=== PATIENT | female | born 1935 | race Caucasian/White ===

== ENCOUNTER 2019-04-25 19:21 | Inpatient (IN) | payer MEDICARE, OTHER ==
[2019-04-26 09:54] VITALS: BP 140/76
[2019-04-26] MEDS ORDERED: TROLAMINE SALICYLATE TP PRN (17:56)
[2019-04-26] MEDS ORDERED: ALOE VERA TP PRN (17:56)
[2019-04-26] MEDS: Albuterol Nebulizer 2.5mg/3mL HHN SCH (19:55)
--- NOTE | 2019-04-26 20:19 | Psychiatric Evaluation ---
DATE OF SERVICE: 04/26/2019 IDENTIFYING DATA: The patient is an 84-year-old woman, resident of [facility]. Information obtained by directly interviewing the patient as well as reviewing the admission papers. JUSTIFICATION OF HOSPITALIZATION: The patient is admitted here on a voluntary basis in view of her acute agitation and aggressive behavior. CHIEF COMPLAINT: "I can't be in here. I need to be out at my own place." HISTORY OF PRESENT ILLNESS: This is the first psychiatric hospitalization to [facility] for this patient who is reported to have been having problem with. The patient has been having repeated falls and the patient could not be taken care of on an outpatient basis and the patient was referred to the [facility]. The patient reported to have been getting easily agitated, striking out and yelling over there and hence the patient has been referred over here for stabilization. The patient during the evaluation is noted to be very irritable, angry and screaming, stating that she cannot be in here. She has everything at home, she needs to be back at [place]. PAST PSYCHIATRIC HISTORY: The patient denies any prior psychiatric hospitalizations, but the patient is reported to be treated for depression. MEDICAL HISTORY: Physical examination is requested by Dr. Ch and is noted to be significant for COPD, anxiety, renal failure and history of lung cancer. The patient claims to be on a rehab and she states that she has all the support at home. SOCIAL HISTORY: The patient was living by herself prior to being in the [facility]. SUBSTANCE ABUSE HISTORY: None. PHYSICAL OR SEXUAL ABUSE HISTORY: None. LEGAL PROBLEMS: None at this time. MENTAL STATUS EXAMINATION: The patient is an 84-year-old thin built, superficially cooperative. Eye contact is fair. Mood is noted to be depressed. Affect is constricted. The patient is going to be getting easily agitated. The patient is wheelchair bound. The patient denies any command hallucinations. No delusions are noted at this time. Insight and judgment are noted to be still impaired. Impulse control is noted to be poor. Coping skills are noted to be poor. The patient has been having difficult time to cope with the stress. The patient is alert and aware that she is in the hospital, but attention span and concentration are noted to be very poor at this time. The patient's short term memory is noted to be poor. Long-term memory seems to be fair. The patient is reported to have been nonredirectable and yelling and striking out. The patient's behavior has been a danger to others at the facility and hence the patient has been referred over here for stabilization. DIAGNOSES: AXIS I: Major depressive disorder, recurrent and moderate. AXIS IB: Dementia and behavioral change, secondary trait. AXIS II: None. AXIS III: As per Dr. Ch. IMMEDIATE TREATMENT PLAN: The patient is going to be observed on the inpatient unit, provided with supportive psychotherapy and once stabilized, she is going to be discharged for further care on an outpatient basis. ESTIMATED LENGTH OF STAY: 5-7 days. DISCHARGE CRITERIA: When the patient no longer is threat to self or others and be able to cope up with the stress. [facility]# [id number]
[2019-04-27] MEDS: Albuterol Nebulizer 2.5mg/3mL HHN SCH ×4 (06:20→20:46)
[2019-04-27] MEDS: Potassium Chloride 20 mEq ER Tab PO SCH (09:44)
--- NOTE | 2019-04-27 13:17 | History and Physical ---
History of Present Illness - HPI Chief Complaint: HISTORY AND PHYSICAL was dictated yesterday 04/26/2019 1150am transfer from [place], patient is medically cleared HPI: This is a 84-year old female who is transferred from [facility] who is medically cleared who is also a resident of [facility]. Patient has a past medical history of lung ca with left upper chest port, hyperlipidemia, alzheimers, pvd, RA, COPD, depression, and acute kidney failure. Vital Signs: Last Vital Signs Temp 97.8 F 04/27/19 07:08 Pulse 54 04/27/19 07:08 Resp 18 04/27/19 07:08 BP 127/66 04/27/19 07:08 Pulse Ox 94 04/27/19 07:08 Past Medical History Other History: see HPI Family Medical History - Family Member Mother History Unknown: Yes Social History Smoke: Quit Alcohol: None Drugs: None Lives: Assisted - Medications Home Medications: Home Medication Medication Instructions Recorded Type Albuterol Nebulizer 2.5mg/3mL 2.5 mg IH Q4HR 04/26/19 History [Albuterol Neb UD*] Albuterol Nebulizer 2.5mg/3mL 2.5 mg IH QID 04/26/19 History [Albuterol Neb UD*] Alprazolam [Xanax*] 1 mg PO DAILY PRN 04/26/19 History Alprazolam [Xanax*] 1 mg PO Q12HR PRN 04/26/19 History Baclofen [Lioresal*] 10 mg PO Q8HR PRN 04/26/19 History Bisacodyl [Dulcolax 10 Mg Supp] 10 mg RC DAILY PRN 04/26/19 History Budesonide/Formoterol Fumarate 2 puff IH BID 04/26/19 History [Symbicort] Cetirizine HCl/Pseudoephedrine 5 - 120 mg PO Q12HR PRN 04/26/19 History [Zyrtec-D Tablet] Divalproex [Depakomeet DR] 250 mg PO Q8HR 04/26/19 History Docusate Sodium [Colace] 100 mg PO BID PRN 04/26/19 History Docusate Sodium [Colace] 100 mg PO BID PRN 04/26/19 History Furosemide [Lasix] 40 mg PO Q24HR PRN 04/26/19 History Gabapentin [Neurontin] 300 mg PO BID 04/26/19 History Ibuprofen [Motrin*] 800 mg PO PRN PRN MDD 3,000 04/26/19 History Leflunomide 10 mg PO BID 04/26/19 History Melatonin 3 mg PO HS PRN 04/26/19 History Ondansetron [Ondansetron Odt] 8 mg PO Q8HR PRN 04/26/19 History Oxycodone HCl 10 mg PO Q8HR PRN 04/26/19 History Potassium Chloride 20 meq PO DAILY 04/26/19 History Prednisone 10 mg PO DAILY 04/26/19 History Promethazine [Phenergan] 6.25 mg PO Q6HR PRN 04/26/19 History Ropinirole HCl [Requip] 0.25 mg PO TID 04/26/19 History Trolamine Salicylate/Aloe Vera 35.4 gm TP PRN PRN 04/26/19 History [Aspercreme 10% Cream] - Allergies Allergies/Adverse Reactions: Allergies Allergy/AdvReac Type Severity Reaction Status Date / Time morphine Allergy Verified 04/26/19 09:54 Review of Systems - Review of Systems Constitutional: Report: No Significant Eyes: Report: No Significant ENT: Report: No Significant Respiratory: Report: No Significant Cardiovascular: Report: No Significant Neurological: Report: No Significant Physical Exam - Physical Exam HEENT: Report: Ears Nose Throat within normal limits Neck: Report: Within normal limits Cardiovascular Systems: Report: +s1/s2 noted, Regular, Rate and Rhythm Abdomen: Report: Non-tender to palpation Back: Report: Other (rashes) Extremities: Report: Non-tender to palpation. Skin: Report: Warm, Dry, Skin Rash noted, Other (LUE port) Neuro/Psych: Report: Mood affect is within normal limits, A+Ox3 - Assessment Assessment: Acute renal failure Lung CA with left upper chest port Hyperlipidemia PVD RA - Plan Plan: continue home medications fall precautions respiratory tx as needed supplemental O2 will continue to follow patient
--- NOTE | 2019-04-27 18:12 | Progress Notes ---
DATE: 04/27/2019 PSYCHIATRIC PROGRESS NOTE SUBJECTIVE: Staff was spoken to. The patient is interviewed. Mood is noted to be irritable. Affect is constricted. The patient wants to call the fire station for the fire truck to come out and then pick her up to take her to home. The patient has no insight into her illness. The patient is getting easily agitated. Coping skills at this time are noted to be very poor. Sleep and appetite also noted to be very poor. ASSESSMENT: The patient is still depressed. PLAN: To continue ____, encouraged the patient to verbalize the concerns rather than to act out. JOB# [id number]
[2019-04-27] MEDS: Budesonide 0.5 Mg/2 mL Ud HHN SCH (20:46)
[2019-04-28] MEDS: Budesonide 0.5 Mg/2 mL Ud HHN SCH ×2 (06:36→19:36)
[2019-04-28] MEDS: Albuterol Nebulizer 2.5mg/3mL HHN SCH ×4 (06:36→19:35)
[2019-04-28] MEDS: Potassium Chloride 20 mEq ER Tab PO SCH (08:35)
[2019-04-28] MEDS: Triple Antibiotic 0.94 gm Pkt TP SCH (08:35)
--- NOTE | 2019-04-28 13:06 | Internal Medicine Prog Note ---
Internal Medicine Subjective - Subjective Patient seen and examined:: with staff, chart reviewed Patient is:: awake, verbal, interactive, in wheelchair Patient Complaints of:: cough Per staff patient has:: no adverse event, no episodes of fall, poor appetite Internal Medicine Objective - Physical Exam Vitals and I&O: Vital Signs Temp 97.6 F 04/28/19 06:37 Pulse 87 04/28/19 06:37 Resp 18 04/28/19 06:37 BP 132/65 04/28/19 06:37 Pulse Ox 96 04/28/19 06:37 Intake & Output 04/27/19 04/28/19 04/28/19 18:59 06:59 18:59 Intake Total 800 120 Balance 800 120 Intake: Oral 800 120 Other: # Voids 3 3 # Bowel Movements 2 Active Medications: Current Medications Acetaminophen (Tylenol) 650 mg PO Q4HR PRN PRN Reason: Temperature Above 100 Stop: 06/25/19 15:19 Albuterol Sulfate (Albuterol 2.5mg/3ml Neb Ud) 2.5 mg HHN QIDRT [facility] Stop: 06/25/19 18:59 Last Admin: 04/28/19 11:39 Dose: Not Given Alprazolam (Xanax) 0.25 mg PO Q6HR PRN; Protocol PRN Reason: Anxiety Stop: 06/25/19 16:56 Last Admin: 04/27/19 00:00 Dose: 0.25 mg Budesonide (Pulmicort) 0.5 mg HHN BIDRT [facility] Stop: 06/26/19 18:59 Last Admin: 04/28/19 06:36 Dose: Not Given Divalproex Sodium (Depakote Dr) 250 mg PO BID [facility]; Protocol Stop: 06/25/19 16:59 Last Admin: 04/28/19 08:35 Dose: 250 mg Docusate Sodium (Colace) 100 mg PO BID PRN PRN Reason: Constipation Stop: 06/25/19 17:55 Furosemide (Lasix) 40 mg PO Q24HR PRN PRN Reason: EDEMA Stop: 06/25/19 18:44 Gabapentin (Neurontin) 300 mg PO BID [facility] Stop: 06/26/19 08:59 Last Admin: 04/28/19 08:35 Dose: 300 mg Ibuprofen (Motrin) 800 mg PO Q8HR PRN PRN Reason: Pain (Mild 1-3) Stop: 06/25/19 17:55 Last Admin: 04/28/19 11:39 Dose: 800 mg Neomycin/Polymyxin/Bacitracin (Triple Antibiotic Pkt) 1 pkt TP DAILY [facility] Stop: 06/27/19 08:59 Last Admin: 04/28/19 08:35 Dose: 1 pkt Potassium Chloride (Klor-Con) 20 meq PO DAILY [facility] Stop: 06/26/19 08:59 Last Admin: 04/28/19 08:35 Dose: 20 meq Prednisone (Deltasone) 10 mg PO DAILY [facility] Stop: 06/26/19 08:59 Last Admin: 04/28/19 08:35 Dose: 10 mg Promethazine HCl (Phenergan) 6.25 mg PO Q6HR PRN PRN Reason: Cough Stop: 06/25/19 17:55 Ropinirole HCl (Requip) 0.25 mg PO TID [facility] Stop: 06/25/19 20:59 Last Admin: 04/28/19 08:36 Dose: Not Given Zolpidem Tartrate (Ambien) 5 mg PO HSMR1 PRN PRN Reason: Insomnia Stop: 06/25/19 15:19 General: alert HEENT: NC/AT, PERRLA, EOMI Neck: Supple, No JVD Lungs: CTAB Cardiovascular: RRR, Normal S1, Normal S2, with murmur Abdomen: soft, thin, positive bowel sound Extremities: clear, contracture Neurological: no change Internal Medicine Assmt/Plan - Assessment Assessment: - Assessment Assessment: Acute renal failure Lung CA with left upper chest port Hyperlipidemia PVD RA - Plan Plan: - - Plan Plan: continue home medications fall precautions respiratory tx as needed supplemental O2 will continue to follow patient cpm
--- NOTE | 2019-04-28 21:00 | Consultation ---
DATE OF CONSULTATION: 04/28/2019 REFERRING PHYSICIANS: Kiet Gonzales MD and Isabell Maldonado MD TYPE OF CONSULTATION: Psychology. HISTORY OF PRESENT ILLNESS: The patient is an 84-year-old female. The patient is a resident of [facility]. The following is by record review and by the patient's self-report. The patient is being admitted due to acute agitation and aggressive behavior. Upon interview, the patient appears to have poor insight into her recent behavior and her illness. The patient stated that she should not be here and she was supposed to be discharged on Sunday. The patient assumes that she is discharging and returning to her own home. The patient has been in a alf facility in [place] previously. The staff at the patient's facility report that the patient has had repeated falls and was unable to take care of herself on an outpatient basis. The patient was referred to [facility]. According to review of the record, the patient has a recent history of striking out and yelling episodes. The patient seems to be calmer during this clinical interview. The patient continued to singularly focus and perseverate on being discharged. PAST MEDICAL HISTORY: Please see history and physical by Dr. Ch. PAST PSYCHIATRIC HISTORY: The patient has a history of depression. According to record review, the patient states she has not been treated by a psychiatrist or psychologist in the past and there have been no previous psychiatric hospitalizations. SUBSTANCE ABUSE HISTORY: The patient denied any history of alcohol, tobacco or illicit drug use. BRIEF PSYCHOSOCIAL HISTORY: The patient states that she was living by herself at home prior to being transferred to [facility]. The patient was unable to state how long she has been there. The patient states that she was raised [employer] and that she has been for many years. The patient states that her children are involved in her care. The patient stated just the one daughter, Jane that is involved in her care and her granddaughter named, Soni. The patient did not answer questions about occupational or educational history. She denied any current legal problems. She denies any history of physical or sexual abuse. The patient is requesting to return to her own home upon discharge from here. This was deferred to the attending psychiatrist and the showcase maker. MENTAL STATUS EXAMINATION: The patient appears to be her stated age. The patient's attitude is superficially cooperative, but easily frustrated. Eye contact is fair. Speech is spontaneous, but somewhat pressured. Mood is anxious and depressed. Affect is mood congruent and animated and reactive. Thought process shows to be confused at times, but is cognitively redirectable. The patient denied any hallucinations or delusions. The patient is perseverating on discharge and returning home. The patient's behavior has been demanding towards staff with respect to discharge and seeing the admitting physician. The patient has been compliant with her medications. She denied any suicidal ideation, plan or intention at the time of this clinical interview. Impulse control is limited. Concentration is poor with distractibility, but the patient does respond to cognitive refocusing. The patient was able to repeat 3 items given to her the first time. She was unable to recall any of the items after several minutes. Short term memory is impaired. Long-term memory needs further evaluation, but seems to be grossly intact. Sensorium is alert and oriented to person and place. The patient has a history of striking out behaviors according to record review. The patient did not participate in the interpretation of proverbs. Insight is poor. Judgment is compromised. DIAGNOSTIC IMPRESSION AXIS I: 1. Major depressive disorder, recurrent, moderate. 2. Dementia with behavioral disturbance. AXIS II: Deferred. AXIS III: Per Dr. Ch. TREATMENT PLAN: The patient has been seen by Dr. Maldonado for psychiatric evaluation and for the management of the patient's psychotropic medications. We will provide supportive psychotherapy to include reality orientation, differentiation and integration. We will provide coping strategies for phase of life issues. We will provide insight oriented therapy with reflective listening to assist the patient in reducing her depression and adjusting to her current circumstances. The patient has been compliant with medication. Staff however, states that the patient has had an episode of yelling and screaming with difficulty to redirect behaviorally. We will provide de-escalation as well as boundary definitions and awareness for the patient to more appropriately interact with staff and to increase her frustration tolerance. The patient is confused about her discharge. This tech writer requested social contact worker to discuss discharge and her request to see the attending psychiatrist has been passed on to the nursing staff. The patient does understand that discharge is by Dr. Maldonado. We will continue the present treatment if the patient remains on the unit and is willing to participate and to benefit from psychology services. Thank you, Dr. Gonzales and Dr. Maldonado for this consult and the opportunity to participate with you in this patient's care. JOB# [id number] [email or web address]
--- NOTE | 2019-04-28 21:06 | Progress Notes ---
DATE: 04/28/2019 PSYCHIATRIC PROGRESS NOTE SUBJECTIVE: Staff was spoken to. The patient is interviewed. Mood is noted to be irritable. Affect is constricted. The patient is still perseverating that she needs to be discharged and she can take care of herself and she has lot of help at home. However, the family is calling and stating that she is not ready to come home, she needs to go for placement. The patient has no insight into her illness. ASSESSMENT: The patient is still impulsive. PLAN: To continue the patient with the supportive therapy, encouraged the patient to verbalize the concerns rather than to act out. JOB# [id number]
[2019-04-29] MEDS: Budesonide 0.5 Mg/2 mL Ud HHN SCH ×2 (06:06→20:23)
[2019-04-29] MEDS: Albuterol Nebulizer 2.5mg/3mL HHN SCH ×4 (06:06→20:23)
[2019-04-29] MEDS: Triple Antibiotic 0.94 gm Pkt TP SCH (08:46)
[2019-04-29] MEDS: Potassium Chloride 20 mEq ER Tab PO SCH (08:46)
--- NOTE | 2019-04-29 12:11 | Internal Medicine Prog Note ---
Internal Medicine Subjective - Subjective Patient seen and examined:: with staff, chart reviewed Patient is:: awake, verbal, interactive, in wheelchair Patient Complaints of:: cough Per staff patient has:: no adverse event, no episodes of fall, poor appetite Internal Medicine Objective - Physical Exam Vitals and I&O: Vital Signs Temp 97.2 F 04/29/19 06:22 Pulse 97 04/29/19 06:22 Resp 20 04/29/19 06:22 BP 139/71 04/29/19 06:22 Pulse Ox 92 04/29/19 06:22 Intake & Output 04/28/19 04/29/19 04/29/19 18:59 06:59 18:59 Intake Total 1100 240 Balance 1100 240 Intake: Oral 1100 240 Other: # Voids 2 2 # Bowel Movements 0 Active Medications: Current Medications Acetaminophen (Tylenol) 650 mg PO Q4HR PRN PRN Reason: Temperature Above 100 Stop: 06/25/19 15:19 Albuterol Sulfate (Albuterol 2.5mg/3ml Neb Ud) 2.5 mg HHN QIDRT [facility] Stop: 06/25/19 18:59 Last Admin: 04/29/19 06:06 Dose: 2.5 mg Alprazolam (Xanax) 0.25 mg PO Q6HR PRN; Protocol PRN Reason: Anxiety Stop: 06/25/19 16:56 Last Admin: 04/27/19 00:00 Dose: 0.25 mg Budesonide (Pulmicort) 0.5 mg HHN BIDRT [facility] Stop: 06/26/19 18:59 Last Admin: 04/29/19 06:06 Dose: 0.5 mg Divalproex Sodium (Depakote Dr) 250 mg PO BID [facility]; Protocol Stop: 06/25/19 16:59 Last Admin: 04/29/19 08:46 Dose: 250 mg Docusate Sodium (Colace) 100 mg PO BID PRN PRN Reason: Constipation Stop: 06/25/19 17:55 Furosemide (Lasix) 40 mg PO Q24HR PRN PRN Reason: EDEMA Stop: 06/25/19 18:44 Gabapentin (Neurontin) 300 mg PO BID [facility] Stop: 06/26/19 08:59 Last Admin: 04/29/19 08:46 Dose: 300 mg Ibuprofen (Motrin) 800 mg PO Q8HR PRN PRN Reason: Pain (Mild 1-3) Stop: 06/25/19 17:55 Last Admin: 04/28/19 11:39 Dose: 800 mg Neomycin/Polymyxin/Bacitracin (Triple Antibiotic Pkt) 1 pkt TP DAILY [facility] Stop: 06/27/19 08:59 Last Admin: 04/29/19 08:46 Dose: 1 pkt Potassium Chloride (Klor-Con) 20 meq PO DAILY [facility] Stop: 06/26/19 08:59 Last Admin: 04/29/19 08:46 Dose: 20 meq Prednisone (Deltasone) 10 mg PO DAILY [facility] Stop: 06/26/19 08:59 Last Admin: 04/29/19 08:46 Dose: 10 mg Promethazine HCl (Phenergan) 6.25 mg PO Q6HR PRN PRN Reason: Cough Stop: 06/25/19 17:55 Last Admin: 04/29/19 08:51 Dose: 6.25 mg Ropinirole HCl (Requip) 0.25 mg PO TID [facility] Stop: 06/25/19 20:59 Last Admin: 04/29/19 08:51 Dose: 0.25 mg Zolpidem Tartrate (Ambien) 5 mg PO HSMR1 PRN PRN Reason: Insomnia Stop: 06/25/19 15:19 General: alert HEENT: NC/AT, PERRLA, EOMI Neck: Supple, No JVD Lungs: CTAB Cardiovascular: RRR, Normal S1, Normal S2, with murmur Abdomen: soft, thin, positive bowel sound Extremities: clear, contracture Neurological: no change Internal Medicine Assmt/Plan - Assessment Assessment: - Assessment Assessment: Acute renal insufficiency Lung CA with left upper chest port Hyperlipidemia PVD RA - Plan Plan: - - Plan Plan: continue home medications fall precautions respiratory tx as needed supplemental O2 will continue to follow patient cpm
--- NOTE | 2019-04-30 02:59 | Progress Notes ---
DATE: 04/29/2019 PSYCHIATRIC PROGRESS NOTE SUBJECTIVE: Staff was spoken to. The patient is interviewed. Mood is noted to be irritable. Affect is constricted. Insight and judgment are noted to be still impaired. The patient is very argumentative, stating that she needs to go to her home and she has all the help that she needs. Coping skills at this time are noted to be very poor. No side effects to the medications are noted. The patient is not able to care for self; however, the patient keeps on arguing that she is able to care for herself and she needs to be discharged back to her home. The patient has been mentioned that she is not on the hospice and the patient is stating that she could not really ____ why she was taken off of the hospice. ASSESSMENT: The patient is depressed at this time. PLAN: To continue the patient with the supportive therapy. I encouraged the patient to verbalize the concerns rather than to act out. In view of the patient's depression, the patient is going to be started on the Lexapro 5 mg on a daily basis and followed up with the supportive therapy. JOB# [id number]
[2019-04-30] MEDS: Budesonide 0.5 Mg/2 mL Ud HHN SCH ×2 (08:00→20:25)
[2019-04-30] MEDS: Potassium Chloride 20 mEq ER Tab PO SCH (09:29)
[2019-04-30] MEDS: Triple Antibiotic 0.94 gm Pkt TP SCH (09:31)
[2019-04-30] MEDS: Venelex 60gm Tube TP SCH (09:56)
[2019-04-30] MEDS: Albuterol Nebulizer 2.5mg/3mL HHN SCH ×4 (10:55→20:25)
--- NOTE | 2019-04-30 13:33 | Internal Medicine Prog Note ---
Internal Medicine Subjective - Subjective Patient seen and examined:: with staff, chart reviewed Patient is:: awake, verbal, interactive, in wheelchair Patient Complaints of:: cough Per staff patient has:: no adverse event, no episodes of fall, poor appetite Internal Medicine Objective - Physical Exam Vitals and I&O: Vital Signs Temp 96.9 F 04/30/19 08:00 Pulse 106 04/30/19 08:00 Resp 20 04/30/19 08:00 BP 131/66 04/30/19 08:00 Pulse Ox 98 04/30/19 08:00 Intake & Output 04/29/19 04/30/19 04/30/19 18:59 06:59 18:59 Intake Total 1200 120 Balance 1200 120 Intake: Oral 1200 120 Other: # Voids 3 3 # Bowel Movements 1 0 Active Medications: Current Medications Acetaminophen (Tylenol) 650 mg PO Q4HR PRN PRN Reason: Temperature Above 100 Stop: 06/25/19 15:19 Albuterol Sulfate (Albuterol 2.5mg/3ml Neb Ud) 2.5 mg HHN QIDRT [facility] Stop: 06/25/19 18:59 Last Admin: 04/30/19 10:55 Dose: 2.5 mg Alprazolam (Xanax) 0.25 mg PO Q6HR PRN; Protocol PRN Reason: Anxiety Stop: 06/25/19 16:56 Last Admin: 04/27/19 00:00 Dose: 0.25 mg Budesonide (Pulmicort) 0.5 mg HHN BIDRT [facility] Stop: 06/26/19 18:59 Last Admin: 04/30/19 08:00 Dose: 0.5 mg [place] Oil/Iranian Balsam/Trypsin (Venelex) 1 appl TP DAILY [facility] Stop: 06/29/19 08:59 Last Admin: 04/30/19 09:56 Dose: 1 appl Divalproex Sodium (Depakote Dr) 250 mg PO BID [facility]; Protocol Stop: 06/25/19 16:59 Last Admin: 04/30/19 09:30 Dose: 250 mg Docusate Sodium (Colace) 100 mg PO BID PRN PRN Reason: Constipation Stop: 06/25/19 17:55 Escitalopram Oxalate (Lexapro) 5 mg PO DAILY [facility]; Protocol Stop: 04/26/20 08:59 Furosemide (Lasix) 40 mg PO Q24HR PRN PRN Reason: EDEMA Stop: 06/25/19 18:44 Gabapentin (Neurontin) 300 mg PO BID [facility] Stop: 06/26/19 08:59 Last Admin: 04/30/19 09:30 Dose: 300 mg Ibuprofen (Motrin) 800 mg PO Q8HR PRN PRN Reason: Pain (Mild 1-3) Stop: 06/25/19 17:55 Last Admin: 04/28/19 11:39 Dose: 800 mg Neomycin/Polymyxin/Bacitracin (Triple Antibiotic Pkt) 1 pkt TP DAILY [facility] Stop: 06/27/19 08:59 Last Admin: 04/30/19 09:31 Dose: 1 pkt Potassium Chloride (Klor-Con) 20 meq PO DAILY [facility] Stop: 06/26/19 08:59 Last Admin: 04/30/19 09:29 Dose: 20 meq Prednisone (Deltasone) 10 mg PO DAILY [facility] Stop: 06/26/19 08:59 Last Admin: 04/30/19 09:30 Dose: 10 mg Promethazine HCl (Phenergan) 6.25 mg PO Q6HR PRN PRN Reason: Cough Stop: 06/25/19 17:55 Last Admin: 04/29/19 08:51 Dose: 6.25 mg Ropinirole HCl (Requip) 0.25 mg PO TID [facility] Stop: 06/25/19 20:59 Last Admin: 04/30/19 09:44 Dose: 0.25 mg Zolpidem Tartrate (Ambien) 5 mg PO HSMR1 PRN PRN Reason: Insomnia Stop: 06/25/19 15:19 Last Admin: 04/29/19 22:20 Dose: 5 mg General: alert HEENT: NC/AT, PERRLA, EOMI Neck: Supple, No JVD Lungs: CTAB Cardiovascular: RRR, Normal S1, Normal S2, with murmur Abdomen: soft, thin, positive bowel sound Extremities: clear, contracture Neurological: no change Internal Medicine Assmt/Plan - Assessment Assessment: - Assessment Assessment: Acute renal insufficiency Lung CA with left upper chest port Hyperlipidemia PVD RA - Plan Plan: - - Plan Plan: continue home medications fall precautions respiratory tx as needed supplemental O2 will continue to follow patient cpm Nutritional Asmnt/Malnutr-PDOC - Dietary Evaluation Malnutrition Findings (Please click <Entered> for more info): Nutritional Asmnt/Malnutrition Start: 04/29/19 14: 16 Text: Status: Complete Freq: Protocol: Document 04/29/19 14:16 CARMEN (Rec: 04/29/19 14:19 CARMEN [email or web address]) Nutritional Asmnt/Malnutrition Patient General Information Nutritional Screening Moderate Risk Diagnosis Psychosis Pertinent Medical Hx/Surgical Hx Lung CA with LT Upper Chest Port, Hyperlipidemia, Alzheimers Disease, PVD, RA, COPD, Depression, AKF Subjective Information Pt is a 84-year-old female admitted on 04/26 d/t agitation and aggressive behavior. Pt is eating an estimated 60% of meals since admit date (x3 days) Per Meal/Nutrition Activity Record. Dietary is currently providing an estimated 1750 kcals and 100 gm Pro, per Pt PO intake this is providing an estimated 1050 kcals and 60gm Pro to meet 78 % kcal and 100% Pro needs. Will continue to monitor PO intake. Spoke with pt nurse Anahy concerning pt A1c order, nurse to follow-up. Anthropometrics HT: 53 WT: 120 LB (54.55 kg) BMI: 21.26 (normal) GI/ Skin Integrity GI: WNL, Soft BM: 04/27 x2 I/O: 1340/Not Noted Skin: Dryness, Redness, Bruises Hunter: 17 Diet Order: [facility] Estimated Energy Needs: ( Geriatric, CBW) 3120-7663 kcals (25-30 kcals/ kg) 55-65g Pro (1.0-1.2 g/kg) 7960-5385 ml (25-30 ml/kg) Current Diet Order/ Nutrition Support [facility] Pertinent Medications Albuterol (PRN), Pulmicort, Colace, Lasix, Klor-con, Deltasone Pertinent Labs 04/25: Glucose 162, BUN/Cr 27/0 .81, Ca 7.6, T Protein 5.3, Albumin 2.6, Hgb/Hct 9.7/30.2 Nutritional Hx/Data Height 1.6 m Height (Calculated Centimeters) 160.0 Current Weight (lbs) 54.431 kg Weight (Calculated Kilograms) 54.4 Weight (Calculated Grams) 51889.1 [place] Body Weight 115 LB (52.27 kg) % [place] Body Weight 104 Body Mass Index (BMI) 21.2 Weight Status Overweight GI Symptoms Last BM 04/27 x2 Skin Integrity/Comment: Skin: Dryness, Redness, Bruises Hunter: 17 Current %PO Fair (50-74%) Estimated Nutritional Goals BEE in Kcals: Using Current wt Calories/Kcals/Kg 25-30 Kcals Calculated 3575-1765 Protein: Using Current wt Protein g/k.0-1.2 Protein Calculated 55-65 Fluid: ml 5609-7064 ml (25-30 ml/kg Nutritional Problem 1. Problem Problem Impaired nutrient utilization Etiology r/t endocrine dysfunction Signs/Symptoms: aeb labs (04/25) Glucose 162. Malnutrition Related to Morbid Obesity Malnutrition related to morbid obesity No Intervention/Recommendation Comments Continue CCHO diet as tolerated. Expected Outcomes/Goals Expected Outcomes/Goals 1.PO intake to continue to meet >75% of estimated nutritional needs. 2.Monitor PO intake, wt, nutrition related lab to trend WNL, and skin integrity to trend WNL. 3.F/U as low risk in 7-10 days , 05/05-05/08.
--- NOTE | 2019-04-30 20:07 | Progress Notes ---
DATE: 04/30/2019 PSYCHOLOGY PROGRESS NOTE SUBJECTIVE: The patient is seen and is interviewed. Case is discussed with staff. The patient presents as frustrated and excitable. The patient is generally argumentative with respect to the admission here on the geropsychiatric unit and reasons for this admission. The patient does not understand why she is being hospitalized. She has no insight into her illness and does not understand or acknowledge her past behavior. The patient continued to argue to be discharged directly to her home and that her family already knows that this is supposed to happen and that the doctors are preventing this from happening. OBJECTIVE: Mood is irritable and frustrated. Affect is labile and animated. Thought process shows perseveration on discharge as well as returning home. The patient continues to be confused. The patient mentioned that she was taken off hospice and does not need to be hospitalized or see any more doctors. The patient denied any hallucinations. There may be delusional content present. This needs further evaluation. The patient continues to be somewhat demanding towards staff. ASSESSMENT: The patient's depression, confusion and anxiety persist. PLAN: We provided supportive psychotherapy and included a simple anxiety reduction skill as well as stress management to assist the patient in increasing her frustration tolerance. We provided reality testing and reality integration to assist the patient in increasing her insight into her illness and about her past behavior and reasons for hospitalization. We provided coping strategies to assist the patient in adjusting to her current circumstances. The patient requested a discussion with case management. Case management and nursing have been informed of the patient's request to discuss discharge. The attending psychiatrist is starting the patient on Lexapro 5 mg. We will continue to provide treatment and follow up in 2-3 days if the patient remains on the unit and is willing and has the capacity to participate in psychotherapeutic treatment. JOB# [id number] RACHEL
--- NOTE | 2019-05-01 01:55 | Progress Notes ---
DATE: 04/30/2019 PSYCHIATRIC PROGRESS NOTE PSYCHIATRIC PROGRESS NOTE SUBJECTIVE: Staff was spoken to. The patient is interviewed. Mood is noted to be irritable. Affect is constricted. The patient is getting easily frustrated. Insight and judgment at this time are noted to be still impaired. Impulse control is noted to be limited. The patient is still focused on living by herself, which the patient is not able to do so. The patient is stating that she has all the support outside and there is no reason for her to be in the hospital. The patient has no coping skills at this time. ASSESSMENT: The patient is still impulsive and depressed. PLAN: To continue the patient with the supportive therapy and followup. [facility]# [id number]
[2019-05-01] MEDS ORDERED: GLUCAGON HCl 1 MG KIT IM PRN (03:45)
[2019-05-01] MEDS ORDERED: INSULIN LISPRO SLIDING SCALE 100 UNITS/ML UNIT SUBQ PRN (03:45)
[2019-05-01] MEDS: Budesonide 0.5 Mg/2 mL Ud HHN SCH ×2 (06:22→19:08)
[2019-05-01] MEDS: Albuterol Nebulizer 2.5mg/3mL HHN SCH ×4 (06:22→19:07)
[2019-05-01] MEDS: Venelex 60gm Tube TP SCH (09:04)
[2019-05-01] MEDS: Potassium Chloride 20 mEq ER Tab PO SCH (09:09)
[2019-05-01] MEDS: Triple Antibiotic 0.94 gm Pkt TP SCH (09:12)
--- NOTE | 2019-05-01 09:12 | Progress Notes ---
DATE: 05/01/2019 PSYCHIATRIC PROGRESS NOTE SUBJECTIVE: Staff was spoken to. The patient is interviewed. Mood is noted to be irritable. Affect is constricted. The patient is stating that she has been trying to get out of here, no one is helping her. The patient is still insisting on having her way. The patient is not able to care for self, but the patient is still stating that she has all the support outside and that she can be taken care of. Coping skills at this time are noted to be very poor. The patient is being maintained on low dose of valproic acid and escitalopram for her depression, the patient has been able to tolerate the medications. No side effects to the medications are noted at this time. ASSESSMENT: The patient is still depressed and awaiting placement. PLAN: To continue the patient with the current medications and follow. JOB# [id number]
[2019-05-01] MEDS: Escitalopram Oxalate 5 mg Tab PO SCH (12:30)
--- NOTE | 2019-05-01 12:46 | Internal Medicine Prog Note ---
Internal Medicine Subjective - Subjective Patient seen and examined:: with staff, chart reviewed Patient is:: awake, verbal, interactive, in wheelchair Patient Complaints of:: cough Per staff patient has:: no adverse event, no episodes of fall, poor appetite Internal Medicine Objective - Physical Exam Vitals and I&O: Vital Signs Temp 98.2 F 05/01/19 06:25 Pulse 93 05/01/19 06:25 Resp 18 05/01/19 08:00 BP 136/73 05/01/19 06:25 Pulse Ox 94 05/01/19 06:25 Intake & Output 04/30/19 05/01/19 05/01/19 18:59 06:59 18:59 Intake Total 120 Balance 120 Intake: Oral 120 Other: # Voids 2 1 # Bowel Movements 1 0 Active Medications: Current Medications Acetaminophen (Tylenol) 650 mg PO Q4HR PRN PRN Reason: Temperature Above 100 Stop: 06/25/19 15:19 Albuterol Sulfate (Albuterol 2.5mg/3ml Neb Ud) 2.5 mg HHN QIDRT [facility] Stop: 06/25/19 18:59 Last Admin: 05/01/19 11:00 Dose: Not Given Alprazolam (Xanax) 0.25 mg PO Q6HR PRN; Protocol PRN Reason: Anxiety Stop: 06/25/19 16:56 Last Admin: 04/27/19 00:00 Dose: 0.25 mg Budesonide (Pulmicort) 0.5 mg HHN BIDRT [facility] Stop: 06/26/19 18:59 Last Admin: 05/01/19 06:22 Dose: 0.5 mg [place] Oil/Dutch Balsam/Trypsin (Venelex) 1 appl TP DAILY [facility] Stop: 06/29/19 08:59 Last Admin: 05/01/19 09:04 Dose: 1 appl Divalproex Sodium (Depakote Dr) 250 mg PO BID [facility]; Protocol Stop: 06/25/19 16:59 Last Admin: 05/01/19 09:09 Dose: 250 mg Docusate Sodium (Colace) 100 mg PO BID PRN PRN Reason: Constipation Stop: 06/25/19 17:55 Escitalopram Oxalate (Lexapro) 5 mg PO DAILY [facility]; Protocol Stop: 06/29/19 08:59 Last Admin: 05/01/19 12:30 Dose: Not Given Furosemide (Lasix) 40 mg PO Q24HR PRN PRN Reason: EDEMA Stop: 06/25/19 18:44 Gabapentin (Neurontin) 300 mg PO BID [facility] Stop: 06/26/19 08:59 Last Admin: 05/01/19 09:08 Dose: 300 mg Ibuprofen (Motrin) 800 mg PO Q8HR PRN PRN Reason: Pain (Mild 1-3) Stop: 06/25/19 17:55 Last Admin: 05/01/19 03:41 Dose: 800 mg Neomycin/Polymyxin/Bacitracin (Triple Antibiotic Pkt) 1 pkt TP DAILY [facility] Stop: 06/27/19 08:59 Last Admin: 05/01/19 09:12 Dose: 1 pkt Potassium Chloride (Klor-Con) 20 meq PO DAILY [facility] Stop: 06/26/19 08:59 Last Admin: 05/01/19 09:09 Dose: 20 meq Prednisone (Deltasone) 10 mg PO DAILY [facility] Stop: 06/26/19 08:59 Last Admin: 05/01/19 09:09 Dose: 10 mg Promethazine HCl (Phenergan) 6.25 mg PO Q6HR PRN PRN Reason: Cough Stop: 06/25/19 17:55 Last Admin: 04/29/19 08:51 Dose: 6.25 mg Ropinirole HCl (Requip) 0.25 mg PO TID [facility] Stop: 06/25/19 20:59 Last Admin: 05/01/19 09:05 Dose: 0.25 mg Zolpidem Tartrate (Ambien) 5 mg PO HSMR1 PRN PRN Reason: Insomnia Stop: 06/25/19 15:19 Last Admin: 04/30/19 20:25 Dose: 5 mg General: alert HEENT: NC/AT, PERRLA, EOMI Neck: Supple, No JVD Lungs: CTAB Cardiovascular: RRR, Normal S1, Normal S2, with murmur Abdomen: soft, thin, positive bowel sound Extremities: clear, contracture Neurological: no change Internal Medicine Assmt/Plan - Assessment Assessment: - Assessment Assessment: Acute renal insufficiency Lung CA with left upper chest port Hyperlipidemia PVD RA - Plan Plan: - - Plan Plan: continue home medications fall precautions respiratory tx as needed supplemental O2 will continue to follow patient cpm Nutritional Asmnt/Malnutr-PDOC - Dietary Evaluation Malnutrition Findings (Please click <Entered> for more info): Nutritional Asmnt/Malnutrition Start: 04/29/19 14: 16 Text: Status: Complete Freq: Protocol: Document 04/29/19 14:16 CARMEN (Rec: 04/29/19 14:19 CARMEN [email or web address]) Nutritional Asmnt/Malnutrition Patient General Information Nutritional Screening Moderate Risk Diagnosis Psychosis Pertinent Medical Hx/Surgical Hx Lung CA with LT Upper Chest Port, Hyperlipidemia, Alzheimers Disease, PVD, RA, COPD, Depression, AKF Subjective Information Pt is a 84-year-old female admitted on 04/26 d/t agitation and aggressive behavior. Pt is eating an estimated 60% of meals since admit date (x3 days) Per Meal/Nutrition Activity Record. Dietary is currently providing an estimated 1750 kcals and 100 gm Pro, per Pt PO intake this is providing an estimated 1050 kcals and 60gm Pro to meet 78 % kcal and 100% Pro needs. Will continue to monitor PO intake. Spoke with pt nurse Anahy concerning pt A1c order, nurse to follow-up. Anthropometrics HT: 53 WT: 120 LB (54.55 kg) BMI: 21.26 (normal) GI/ Skin Integrity GI: WNL, Soft BM: 04/27 x2 I/O: 1340/Not Noted Skin: Dryness, Redness, Bruises Hunter: 17 Diet Order: [facility] [place] Estimated Energy Needs: ( Geriatric, CBW) 3205-2288 kcals (25-30 kcals/ kg) 55-65g Pro (1.0-1.2 g/kg) 0201-0127 ml (25-30 ml/kg) Current Diet Order/ Nutrition Support [facility] [place] Pertinent Medications Albuterol (PRN), Pulmicort, Colace, Lasix, Klor-con, Deltasone Pertinent Labs 04/25: Glucose 162, BUN/Cr 27/0 .81, Ca 7.6, T Protein 5.3, Albumin 2.6, Hgb/Hct 9.7/30.2 Nutritional Hx/Data Height 1.6 m Height (Calculated Centimeters) 160.0 Current Weight (lbs) 54.431 kg Weight (Calculated Kilograms) 54.4 Weight (Calculated Grams) 91866.1 [place] Body Weight 115 LB (52.27 kg) % [place] Body Weight 104 Body Mass Index (BMI) 21.2 Weight Status Overweight GI Symptoms Last BM 04/27 x2 Skin Integrity/Comment: Skin: Dryness, Redness, Bruises Hunter: 17 Current %PO Fair (50-74%) Estimated Nutritional Goals BEE in Kcals: Using Current wt Calories/Kcals/Kg 25-30 Kcals Calculated 9822-4222 Protein: Using Current wt Protein g/k.0-1.2 Protein Calculated 55-65 Fluid: ml 8497-2795 ml (25-30 ml/kg Nutritional Problem 1. Problem Problem Impaired nutrient utilization Etiology r/t endocrine dysfunction Signs/Symptoms: aeb labs (04/25) Glucose 162. Malnutrition Related to Morbid Obesity Malnutrition related to morbid obesity No Intervention/Recommendation Comments Continue CCHO diet as tolerated. Expected Outcomes/Goals Expected Outcomes/Goals 1.PO intake to continue to meet >75% of estimated nutritional needs. 2.Monitor PO intake, wt, nutrition related lab to trend WNL, and skin integrity to trend WNL. 3.F/U as low risk in 7-10 days , 05/05-05/08.
[2019-05-02] MEDS: Albuterol Nebulizer 2.5mg/3mL HHN SCH ×4 (06:03→20:14)
[2019-05-02] MEDS: Budesonide 0.5 Mg/2 mL Ud HHN SCH ×2 (07:25→20:14)
[2019-05-02] MEDS: Escitalopram Oxalate 5 mg Tab PO SCH (08:27)
[2019-05-02] MEDS: Venelex 60gm Tube TP SCH (08:27)
[2019-05-02] MEDS: Triple Antibiotic 0.94 gm Pkt TP SCH (08:27)
[2019-05-02] MEDS: Potassium Chloride 20 mEq ER Tab PO SCH (08:27)
--- NOTE | 2019-05-02 11:14 | Progress Notes ---
DATE: 05/02/2019 PSYCHIATRIC PROGRESS NOTE SUBJECTIVE: Staff was spoken to. The patient is interviewed. Mood is noted to be irritable. Affect is constricted. The patient is stating that she wants to go back to [facility] again because all her belongings are there. However, [facility] is not willing to accept the patient back. The patient's insight and judgment at this time are noted to be still impaired. Impulse control is noted to be poor. Coping skills are noted to be very poor. ASSESSMENT: The patient is still depressed. PLAN: To continue the patient with the supportive therapy, encouraged the patient to verbalize the concerns rather than to act out. JOB# [id number]
--- NOTE | 2019-05-02 13:05 | Internal Medicine Prog Note ---
Internal Medicine Subjective - Subjective Patient seen and examined:: with staff, chart reviewed Patient is:: awake, verbal, interactive, in wheelchair Patient Complaints of:: cough Per staff patient has:: no adverse event, no episodes of fall, poor appetite Internal Medicine Objective - Physical Exam Vitals and I&O: Vital Signs Temp 97.8 F 05/02/19 06:36 Pulse 97 05/02/19 06:36 Resp 18 05/02/19 06:36 BP 144/70 05/02/19 06:36 Pulse Ox 96 05/02/19 06:36 Intake & Output 05/01/19 05/02/19 05/02/19 18:59 06:59 18:59 Intake Total 120 Balance 120 Intake: Oral 120 Other: # Voids 1 # Bowel Movements 0 Active Medications: Current Medications Acetaminophen (Tylenol) 650 mg PO Q4HR PRN PRN Reason: Temperature Above 100 Stop: 06/25/19 15:19 Albuterol Sulfate (Albuterol 2.5mg/3ml Neb Ud) 2.5 mg HHN QIDRT [facility] Stop: 06/25/19 18:59 Last Admin: 05/02/19 11:27 Dose: Not Given Alprazolam (Xanax) 0.25 mg PO Q6HR PRN; Protocol PRN Reason: Anxiety Stop: 06/25/19 16:56 Last Admin: 04/27/19 00:00 Dose: 0.25 mg Budesonide (Pulmicort) 0.5 mg HHN BIDRT [facility] Stop: 06/26/19 18:59 Last Admin: 05/02/19 07:25 Dose: Not Given [place] Oil/Bulgarian Balsam/Trypsin (Venelex) 1 appl TP DAILY [facility] Stop: 06/29/19 08:59 Last Admin: 05/02/19 08:27 Dose: 1 appl Divalproex Sodium (Depakote Dr) 250 mg PO BID [facility]; Protocol Stop: 06/25/19 16:59 Last Admin: 05/02/19 08:27 Dose: 250 mg Docusate Sodium (Colace) 100 mg PO BID PRN PRN Reason: Constipation Stop: 06/25/19 17:55 Escitalopram Oxalate (Lexapro) 5 mg PO DAILY [facility]; Protocol Stop: 06/29/19 08:59 Last Admin: 05/02/19 08:27 Dose: 5 mg Furosemide (Lasix) 40 mg PO Q24HR PRN PRN Reason: EDEMA Stop: 06/25/19 18:44 Gabapentin (Neurontin) 300 mg PO BID [facility] Stop: 06/26/19 08:59 Last Admin: 05/02/19 08:27 Dose: 300 mg Ibuprofen (Motrin) 800 mg PO Q8HR PRN PRN Reason: Pain (Mild 1-3) Stop: 06/25/19 17:55 Last Admin: 05/02/19 04:16 Dose: 800 mg Neomycin/Polymyxin/Bacitracin (Triple Antibiotic Pkt) 1 pkt TP DAILY [facility] Stop: 06/27/19 08:59 Last Admin: 05/02/19 08:27 Dose: 1 pkt Potassium Chloride (Klor-Con) 20 meq PO DAILY [facility] Stop: 06/26/19 08:59 Last Admin: 05/02/19 08:27 Dose: 20 meq Prednisone (Deltasone) 10 mg PO DAILY [facility] Stop: 06/26/19 08:59 Last Admin: 05/02/19 08:27 Dose: 10 mg Promethazine HCl (Phenergan) 6.25 mg PO Q6HR PRN PRN Reason: Cough Stop: 06/25/19 17:55 Last Admin: 04/29/19 08:51 Dose: 6.25 mg Ropinirole HCl (Requip) 0.25 mg PO TID [facility] Stop: 06/25/19 20:59 Last Admin: 05/02/19 08:27 Dose: 0.25 mg Zolpidem Tartrate (Ambien) 5 mg PO HSMR1 PRN PRN Reason: Insomnia Stop: 06/25/19 15:19 Last Admin: 05/02/19 00:00 Dose: 5 mg General: alert HEENT: NC/AT, PERRLA, EOMI Neck: Supple, No JVD Lungs: CTAB Cardiovascular: RRR, Normal S1, Normal S2, with murmur Abdomen: soft, thin, positive bowel sound Extremities: clear, contracture Neurological: no change Internal Medicine Assmt/Plan - Assessment Assessment: - Assessment Assessment: Acute renal insufficiency Lung CA with left upper chest port Hyperlipidemia PVD RA - Plan Plan: - - Plan Plan: continue home medications fall precautions respiratory tx as needed supplemental O2 will continue to follow patient cpm Nutritional Asmnt/Malnutr-PDOC - Dietary Evaluation Malnutrition Findings (Please click <Entered> for more info): Nutritional Asmnt/Malnutrition Start: 04/29/19 14: 16 Text: Status: Complete Freq: Protocol: Document 04/29/19 14:16 CARMEN (Rec: 04/29/19 14:19 CARMEN [email or web address]) Nutritional Asmnt/Malnutrition Patient General Information Nutritional Screening Moderate Risk Diagnosis Psychosis Pertinent Medical Hx/Surgical Hx Lung CA with LT Upper Chest Port, Hyperlipidemia, Alzheimers Disease, PVD, RA, COPD, Depression, AKF Subjective Information Pt is a 84-year-old female admitted on 04/26 d/t agitation and aggressive behavior. Pt is eating an estimated 60% of meals since admit date (x3 days) Per Meal/Nutrition Activity Record. Dietary is currently providing an estimated 1750 kcals and 100 gm Pro, per Pt PO intake this is providing an estimated 1050 kcals and 60gm Pro to meet 78 % kcal and 100% Pro needs. Will continue to monitor PO intake. Spoke with pt nurse Anahy concerning pt A1c order, nurse to follow-up. Anthropometrics HT: 53 WT: 120 LB (54.55 kg) BMI: 21.26 (normal) GI/ Skin Integrity GI: WNL, Soft BM: 04/27 x2 I/O: 1340/Not Noted Skin: Dryness, Redness, Bruises Hunter: 17 Diet Order: [facility] Estimated Energy Needs: ( Geriatric, CBW) 1688-7085 kcals (25-30 kcals/ kg) 55-65g Pro (1.0-1.2 g/kg) 8639-4461 ml (25-30 ml/kg) Current Diet Order/ Nutrition Support [facility] Pertinent Medications Albuterol (PRN), Pulmicort, Colace, Lasix, Klor-con, Deltasone Pertinent Labs 04/25: Glucose 162, BUN/Cr 27/0 .81, Ca 7.6, T Protein 5.3, Albumin 2.6, Hgb/Hct 9.7/30.2 Nutritional Hx/Data Height 1.6 m Height (Calculated Centimeters) 160.0 Current Weight (lbs) 54.431 kg Weight (Calculated Kilograms) 54.4 Weight (Calculated Grams) 41016.1 [place] Body Weight 115 LB (52.27 kg) % [place] Body Weight 104 Body Mass Index (BMI) 21.2 Weight Status Overweight GI Symptoms Last BM 04/27 x2 Skin Integrity/Comment: Skin: Dryness, Redness, Bruises Hunter: 17 Current %PO Fair (50-74%) Estimated Nutritional Goals BEE in Kcals: Using Current wt Calories/Kcals/Kg 25-30 Kcals Calculated 2677-2956 Protein: Using Current wt Protein g/k.0-1.2 Protein Calculated 55-65 Fluid: ml 2681-7892 ml (25-30 ml/kg Nutritional Problem 1. Problem Problem Impaired nutrient utilization Etiology r/t endocrine dysfunction Signs/Symptoms: aeb labs (04/25) Glucose 162. Malnutrition Related to Morbid Obesity Malnutrition related to morbid obesity No Intervention/Recommendation Comments Continue CCHO diet as tolerated. Expected Outcomes/Goals Expected Outcomes/Goals 1.PO intake to continue to meet >75% of estimated nutritional needs. 2.Monitor PO intake, wt, nutrition related lab to trend WNL, and skin integrity to trend WNL. 3.F/U as low risk in 7-10 days , 05/05-05/08.
--- NOTE | 2019-05-02 20:15 | Progress Notes ---
DATE: 05/02/2019 PSYCHOLOGY PROGRESS NOTE SUBJECTIVE: The patient is seen up in her wheelchair and interviewed. Case is discussed with staff. The patient continues to present as easily frustrated and perseverated on being discharged back to [facility]. The patient states that she does not understand why she cannot return directly to her own home. This has been explained to her on several different occasions by multiple staff members. Staff reports [facility] is not willing to accept the return of the patient, therefore, the embedded case manager and social worker health services are involved in locating new placement. OBJECTIVE: Mood is frustrated and anxious and dysphoric. Affect is mood congruent and animated. Thought process includes perseveration on discharge. The patient is also confused with limited understanding and insight into her illness and her current circumstances. The patient denied any hallucinations or delusions. The patient has been compliant with her medication. Agitation is lessening according to the staff. ASSESSMENT: The patient continues to be depressed as well as confused. PLAN: We will continue the supportive psychotherapy. We provided encouragement for the patient to verbalize her concerns with the staff and to adjust to her current circumstances. We provided stress management to assist the patient in increasing her frustration tolerance. We continued to provide reality integration and cognitive refocusing with the patient's placement process. We provided coping strategies for phase of life issues as well. We will follow up in 2-3 days if the patient remains on the unit. JOB# [id number] RACHEL
[2019-05-03] MEDS: Albuterol Nebulizer 2.5mg/3mL HHN SCH ×4 (08:44→21:24)
[2019-05-03] MEDS: Budesonide 0.5 Mg/2 mL Ud HHN SCH ×2 (08:44→21:24)
[2019-05-03] MEDS: Triple Antibiotic 0.94 gm Pkt TP SCH (08:50)
[2019-05-03] MEDS: Venelex 60gm Tube TP SCH (08:50)
[2019-05-03] MEDS: Escitalopram Oxalate 5 mg Tab PO SCH (08:50)
[2019-05-03] MEDS: Potassium Chloride 20 mEq ER Tab PO SCH (08:50)
--- NOTE | 2019-05-03 12:44 | Internal Medicine Prog Note ---
Internal Medicine Subjective - Subjective Patient seen and examined:: with staff, chart reviewed Patient is:: awake, verbal, interactive, in wheelchair Patient Complaints of:: cough Per staff patient has:: no adverse event, no episodes of fall, poor appetite Internal Medicine Objective - Physical Exam Vitals and I&O: Vital Signs Temp 98.6 F 05/03/19 06:00 Pulse 88 05/03/19 06:00 Resp 20 05/03/19 06:00 BP 141/71 05/03/19 06:00 Pulse Ox 100 05/03/19 06:00 Intake & Output 05/02/19 05/03/19 05/03/19 18:59 06:59 18:59 Intake Total 960 480 Balance 960 480 Intake: Oral 960 480 Other: # Voids 4 1 # Bowel Movements 1 Active Medications: Current Medications Acetaminophen (Tylenol) 650 mg PO Q4HR PRN PRN Reason: Temperature Above 100 Stop: 06/25/19 15:19 Albuterol Sulfate (Albuterol 2.5mg/3ml Neb Ud) 2.5 mg HHN QIDRT [facility] Stop: 06/25/19 18:59 Last Admin: 05/03/19 11:25 Dose: 2.5 mg Alprazolam (Xanax) 0.25 mg PO Q6HR PRN; Protocol PRN Reason: Anxiety Stop: 06/25/19 16:56 Last Admin: 04/27/19 00:00 Dose: 0.25 mg Budesonide (Pulmicort) 0.5 mg HHN BIDRT [facility] Stop: 06/26/19 18:59 Last Admin: 05/03/19 08:44 Dose: Not Given [place] Oil/[place]aur[place]ian Balsam/Trypsin (Venelex) 1 appl TP DAILY [facility] Stop: 06/29/19 08:59 Last Admin: 05/03/19 08:50 Dose: 1 appl Divalproex Sodium (Depakote Dr) 250 mg PO BID [facility]; Protocol Stop: 06/25/19 16:59 Last Admin: 05/03/19 08:50 Dose: 250 mg Docusate Sodium (Colace) 100 mg PO BID PRN PRN Reason: Constipation Stop: 06/25/19 17:55 Escitalopram Oxalate (Lexapro) 10 mg PO DAILY [facility]; Protocol Stop: 04/30/20 08:59 Furosemide (Lasix) 40 mg PO Q24HR PRN PRN Reason: EDEMA Stop: 06/25/19 18:44 Gabapentin (Neurontin) 300 mg PO BID [facility] Stop: 06/26/19 08:59 Last Admin: 05/03/19 08:50 Dose: 300 mg Ibuprofen (Motrin) 800 mg PO Q8HR PRN PRN Reason: Pain (Mild 1-3) Stop: 06/25/19 17:55 Last Admin: 05/02/19 04:16 Dose: 800 mg Neomycin/Polymyxin/Bacitracin (Triple Antibiotic Pkt) 1 pkt TP DAILY [facility] Stop: 06/27/19 08:59 Last Admin: 05/03/19 08:50 Dose: 1 pkt Potassium Chloride (Klor-Con) 20 meq PO DAILY [facility] Stop: 06/26/19 08:59 Last Admin: 05/03/19 08:50 Dose: 20 meq Prednisone (Deltasone) 10 mg PO DAILY [facility] Stop: 06/26/19 08:59 Last Admin: 05/03/19 08:50 Dose: 10 mg Promethazine HCl (Phenergan) 6.25 mg PO Q6HR PRN PRN Reason: Cough Stop: 06/25/19 17:55 Last Admin: 04/29/19 08:51 Dose: 6.25 mg Ropinirole HCl (Requip) 0.25 mg PO TID [facility] Stop: 06/25/19 20:59 Last Admin: 05/03/19 08:50 Dose: 0.25 mg Zolpidem Tartrate (Ambien) 5 mg PO HSMR1 PRN PRN Reason: Insomnia Stop: 06/25/19 15:19 Last Admin: 05/03/19 00:31 Dose: 5 mg General: alert HEENT: NC/AT, PERRLA, EOMI Neck: Supple, No JVD Lungs: CTAB Cardiovascular: RRR, Normal S1, Normal S2, with murmur Abdomen: soft, thin, positive bowel sound Extremities: clear, contracture Neurological: no change Internal Medicine Assmt/Plan - Assessment Assessment: - Assessment Assessment: Acute renal insufficiency Lung CA with left upper chest port Hyperlipidemia PVD RA - Plan Plan: - - Plan Plan: continue home medications fall precautions respiratory tx as needed supplemental O2 will continue to follow patient cpm Nutritional Asmnt/Malnutr-PDOC - Dietary Evaluation Malnutrition Findings (Please click <Entered> for more info): Nutritional Asmnt/Malnutrition Start: 04/29/19 14: 16 Text: Status: Complete Freq: Protocol: Document 04/29/19 14:16 CARMEN (Rec: 04/29/19 14:19 CARMEN [email or web address]) Nutritional Asmnt/Malnutrition Patient General Information Nutritional Screening Moderate Risk Diagnosis Psychosis Pertinent Medical Hx/Surgical Hx Lung CA with LT Upper Chest Port, Hyperlipidemia, Alzheimers Disease, PVD, RA, COPD, Depression, AKF Subjective Information Pt is a 84-year-old female admitted on 04/26 d/t agitation and aggressive behavior. Pt is eating an estimated 60% of meals since admit date (x3 days) Per Meal/Nutrition Activity Record. Dietary is currently providing an estimated 1750 kcals and 100 gm Pro, per Pt PO intake this is providing an estimated 1050 kcals and 60gm Pro to meet 78 % kcal and 100% Pro needs. Will continue to monitor PO intake. Spoke with pt nurse Anahy concerning pt A1c order, nurse to follow-up. Anthropometrics HT: 53 WT: 120 LB (54.55 kg) BMI: 21.26 (normal) GI/ Skin Integrity GI: WNL, Soft BM: 04/27 x2 I/O: 1340/Not Noted Skin: Dryness, Redness, Bruises Hunter: 17 Diet Order: [facility] Estimated Energy Needs: ( Geriatric, CBW) 9623-2429 kcals (25-30 kcals/ kg) 55-65g Pro (1.0-1.2 g/kg) 9845-8862 ml (25-30 ml/kg) Current Diet Order/ Nutrition Support [facility] Pertinent Medications Albuterol (PRN), Pulmicort, Colace, Lasix, Klor-con, Deltasone Pertinent Labs 04/25: Glucose 162, BUN/Cr 27/0 .81, Ca 7.6, T Protein 5.3, Albumin 2.6, Hgb/Hct 9.7/30.2 Nutritional Hx/Data Height 1.6 m Height (Calculated Centimeters) 160.0 Current Weight (lbs) 54.431 kg Weight (Calculated Kilograms) 54.4 Weight (Calculated Grams) 84559.1 [place] Body Weight 115 LB (52.27 kg) % [place] Body Weight 104 Body Mass Index (BMI) 21.2 Weight Status Overweight GI Symptoms Last BM 04/27 x2 Skin Integrity/Comment: Skin: Dryness, Redness, Bruises Hunter: 17 Current %PO Fair (50-74%) Estimated Nutritional Goals BEE in Kcals: Using Current wt Calories/Kcals/Kg 25-30 Kcals Calculated 3952-4580 Protein: Using Current wt Protein g/k.0-1.2 Protein Calculated 55-65 Fluid: ml 7420-7411 ml (25-30 ml/kg Nutritional Problem 1. Problem Problem Impaired nutrient utilization Etiology r/t endocrine dysfunction Signs/Symptoms: aeb labs (04/25) Glucose 162. Malnutrition Related to Morbid Obesity Malnutrition related to morbid obesity No Intervention/Recommendation Comments Continue CCHO diet as tolerated. Expected Outcomes/Goals Expected Outcomes/Goals 1.PO intake to continue to meet >75% of estimated nutritional needs. 2.Monitor PO intake, wt, nutrition related lab to trend WNL, and skin integrity to trend WNL. 3.F/U as low risk in 7-10 days , 05/05-05/08.
--- NOTE | 2019-05-03 13:21 | Progress Notes ---
DATE: 05/03/2019 PSYCHIATRIC PROGRESS NOTE SUBJECTIVE: Staff was spoken to. The patient is interviewed. Mood is noted to be irritable. Affect is constricted. Insight and judgment are noted to be very much impaired. Impulse control is noted to be limited. The patient is screaming and yelling and is stating that she needs to be discharged. The patient was from the [facility], but the patient did not want the patient to be there because of her behavioral problems. The case management specialist have been looking for placement for this patient. ASSESSMENT: The patient is still depressed. PLAN: To increase the dose on the Lexapro 10 mg and followup. JOB# [id number]
[2019-05-04] MEDS: Budesonide 0.5 Mg/2 mL Ud HHN SCH ×2 (07:05→19:55)
[2019-05-04] MEDS: Albuterol Nebulizer 2.5mg/3mL HHN SCH ×4 (07:05→19:45)
[2019-05-04] MEDS: Triple Antibiotic 0.94 gm Pkt TP SCH (08:49)
[2019-05-04] MEDS: Potassium Chloride 20 mEq ER Tab PO SCH (08:49)
[2019-05-04] MEDS: Escitalopram Oxalate 5 mg Tab PO SCH (08:50)
[2019-05-04] MEDS: Venelex 60gm Tube TP SCH (08:52)
--- NOTE | 2019-05-04 11:55 | Internal Medicine Prog Note ---
Internal Medicine Subjective - Subjective Patient seen and examined:: with staff, chart reviewed Patient is:: awake, verbal, interactive, in wheelchair Patient Complaints of:: cough Per staff patient has:: no adverse event, no episodes of fall, poor appetite Internal Medicine Objective - Physical Exam Vitals and I&O: Vital Signs Temp 98.0 F 05/04/19 06:23 Pulse 91 05/04/19 06:23 Resp 20 05/04/19 06:23 BP 124/67 05/04/19 06:23 Pulse Ox 97 05/04/19 06:23 Intake & Output 05/03/19 05/04/19 05/04/19 18:59 06:59 18:59 Intake Total 950 240 Balance 950 240 Intake: Oral 950 240 Other: # Voids 3 2 # Bowel Movements 1 Active Medications: Current Medications Acetaminophen (Tylenol) 650 mg PO Q4HR PRN PRN Reason: Temperature Above 100 Stop: 06/25/19 15:19 Albuterol Sulfate (Albuterol 2.5mg/3ml Neb Ud) 2.5 mg HHN QIDRT [facility] Stop: 06/25/19 18:59 Last Admin: 05/04/19 11:21 Dose: Not Given Alprazolam (Xanax) 0.25 mg PO Q6HR PRN; Protocol PRN Reason: Anxiety Stop: 06/25/19 16:56 Last Admin: 04/27/19 00:00 Dose: 0.25 mg Budesonide (Pulmicort) 0.5 mg HHN BIDRT [facility] Stop: 06/26/19 18:59 Last Admin: 05/04/19 07:05 Dose: 0.5 mg [place] Oil/[place]gyz Balsam/Trypsin (Venelex) 1 appl TP DAILY [facility] Stop: 06/29/19 08:59 Last Admin: 05/04/19 08:52 Dose: 1 appl Divalproex Sodium (Depakote Dr) 250 mg PO BID [facility]; Protocol Stop: 06/25/19 16:59 Last Admin: 05/04/19 08:49 Dose: 250 mg Docusate Sodium (Colace) 100 mg PO BID PRN PRN Reason: Constipation Stop: 06/25/19 17:55 Escitalopram Oxalate (Lexapro) 10 mg PO DAILY [facility]; Protocol Stop: 07/03/19 08:59 Last Admin: 05/04/19 08:50 Dose: 10 mg Furosemide (Lasix) 40 mg PO Q24HR PRN PRN Reason: EDEMA Stop: 06/25/19 18:44 Gabapentin (Neurontin) 300 mg PO BID [facility] Stop: 06/26/19 08:59 Last Admin: 05/04/19 08:49 Dose: 300 mg Ibuprofen (Motrin) 800 mg PO Q8HR PRN PRN Reason: Pain (Mild 1-3) Stop: 06/25/19 17:55 Last Admin: 05/02/19 04:16 Dose: 800 mg Neomycin/Polymyxin/Bacitracin (Triple Antibiotic Pkt) 1 pkt TP DAILY [facility] Stop: 06/27/19 08:59 Last Admin: 05/04/19 08:49 Dose: 1 pkt Potassium Chloride (Klor-Con) 20 meq PO DAILY [facility] Stop: 06/26/19 08:59 Last Admin: 05/04/19 08:49 Dose: 20 meq Prednisone (Deltasone) 10 mg PO DAILY [facility] Stop: 06/26/19 08:59 Last Admin: 05/04/19 08:49 Dose: 10 mg Promethazine HCl (Phenergan) 6.25 mg PO Q6HR PRN PRN Reason: Cough Stop: 06/25/19 17:55 Last Admin: 04/29/19 08:51 Dose: 6.25 mg Ropinirole HCl (Requip) 0.25 mg PO TID [facility] Stop: 06/25/19 20:59 Last Admin: 05/04/19 09:43 Dose: 0.25 mg Zolpidem Tartrate (Ambien) 5 mg PO HSMR1 PRN PRN Reason: Insomnia Stop: 06/25/19 15:19 Last Admin: 05/04/19 02:34 Dose: 5 mg General: alert HEENT: NC/AT, PERRLA, EOMI Neck: Supple, No JVD Lungs: CTAB Cardiovascular: RRR, Normal S1, Normal S2, with murmur Abdomen: soft, thin, positive bowel sound Extremities: clear, contracture Neurological: no change Internal Medicine Assmt/Plan - Assessment Assessment: - Assessment Assessment: Acute renal insufficiency Lung CA with left upper chest port Hyperlipidemia PVD RA - Plan Plan: - - Plan Plan: continue home medications fall precautions respiratory tx as needed supplemental O2 will continue to follow patient cpm Nutritional Asmnt/Malnutr-PDOC - Dietary Evaluation Malnutrition Findings (Please click <Entered> for more info): Nutritional Asmnt/Malnutrition Start: 04/29/19 14: 16 Text: Status: Complete Freq: Protocol: Document 04/29/19 14:16 CARMEN (Rec: 04/29/19 14:19 CARMEN [email or web address]) Nutritional Asmnt/Malnutrition Patient General Information Nutritional Screening Moderate Risk Diagnosis Psychosis Pertinent Medical Hx/Surgical Hx Lung CA with LT Upper Chest Port, Hyperlipidemia, Alzheimers Disease, PVD, RA, COPD, Depression, AKF Subjective Information Pt is a 84-year-old female admitted on 04/26 d/t agitation and aggressive behavior. Pt is eating an estimated 60% of meals since admit date (x3 days) Per Meal/Nutrition Activity Record. Dietary is currently providing an estimated 1750 kcals and 100 gm Pro, per Pt PO intake this is providing an estimated 1050 kcals and 60gm Pro to meet 78 % kcal and 100% Pro needs. Will continue to monitor PO intake. Spoke with pt nurse Anahy concerning pt A1c order, nurse to follow-up. Anthropometrics HT: 53 WT: 120 LB (54.55 kg) BMI: 21.26 (normal) GI/ Skin Integrity GI: WNL, Soft BM: 04/27 x2 I/O: 1340/Not Noted Skin: Dryness, Redness, Bruises Hunter: 17 Diet Order: [facility] Estimated Energy Needs: ( Geriatric, CBW) 6101-2979 kcals (25-30 kcals/ kg) 55-65g Pro (1.0-1.2 g/kg) 3669-6949 ml (25-30 ml/kg) Current Diet Order/ Nutrition Support [facility] Pertinent Medications Albuterol (PRN), Pulmicort, Colace, Lasix, Klor-con, Deltasone Pertinent Labs 04/25: Glucose 162, BUN/Cr 27/0 .81, Ca 7.6, T Protein 5.3, Albumin 2.6, Hgb/Hct 9.7/30.2 Nutritional Hx/Data Height 1.6 m Height (Calculated Centimeters) 160.0 Current Weight (lbs) 54.431 kg Weight (Calculated Kilograms) 54.4 Weight (Calculated Grams) 58153.1 [place] Body Weight 115 LB (52.27 kg) % [place] Body Weight 104 Body Mass Index (BMI) 21.2 Weight Status Overweight GI Symptoms Last BM 04/27 x2 Skin Integrity/Comment: Skin: Dryness, Redness, Bruises Hunter: 17 Current %PO Fair (50-74%) Estimated Nutritional Goals BEE in Kcals: Using Current wt Calories/Kcals/Kg 25-30 Kcals Calculated 3769-3468 Protein: Using Current wt Protein g/k.0-1.2 Protein Calculated 55-65 Fluid: ml 0041-5436 ml (25-30 ml/kg Nutritional Problem 1. Problem Problem Impaired nutrient utilization Etiology r/t endocrine dysfunction Signs/Symptoms: aeb labs (04/25) Glucose 162. Malnutrition Related to Morbid Obesity Malnutrition related to morbid obesity No Intervention/Recommendation Comments Continue CCHO diet as tolerated. Expected Outcomes/Goals Expected Outcomes/Goals 1.PO intake to continue to meet >75% of estimated nutritional needs. 2.Monitor PO intake, wt, nutrition related lab to trend WNL, and skin integrity to trend WNL. 3.F/U as low risk in 7-10 days , 05/05-05/08.
--- NOTE | 2019-05-04 16:39 | Progress Notes ---
DATE: 05/04/2019 PSYCHIATRIC PROGRESS NOTE SUBJECTIVE: Staff was spoken to. The patient is interviewed. The patient is very tearful and crying and stating that she has lost all the three kids and she does not have anyone. The patient is stating that she is still having their ashes in her house and she needs to find a place to dispose. Coping skills are noted to be very poor. The patient is depressed. The patient is currently on Lexapro and has been able to tolerate the medication. The patient is stating that she wants to find a place close to her house in [place]. The patient has been clearly informed the [facility] is not willing to take the patient back, but the patient wants to look for some place close by. JOB# [id number]
[2019-05-05] MEDS: Budesonide 0.5 Mg/2 mL Ud HHN SCH ×2 (07:11→19:56)
[2019-05-05] MEDS: Albuterol Nebulizer 2.5mg/3mL HHN SCH ×4 (07:11→19:56)
[2019-05-05] MEDS: Potassium Chloride 20 mEq ER Tab PO SCH (08:58)
[2019-05-05] MEDS: Escitalopram Oxalate 5 mg Tab PO SCH (08:58)
[2019-05-05] MEDS: Triple Antibiotic 0.94 gm Pkt TP SCH (08:58)
[2019-05-05] MEDS: Venelex 60gm Tube TP SCH (08:59)
--- NOTE | 2019-05-05 11:51 | Progress Notes ---
DATE: 05/05/2019 PSYCHIATRIC PROGRESS NOTE SUBJECTIVE: Staff was spoken to. The patient is interviewed. Mood is noted to be irritable. Affect is constricted. The patient is stating that no one understands what she has been going through. The patient's insight and judgment at this time are noted to be still impaired. Impulse control is noted to be limited. Coping skills are noted to be limited. The patient has been having difficult time to cope with the stress. The patient wants to be close to her residence that is in [place]. ASSESSMENT: The patient is still depressed. PLAN: To continue the patient with the supportive therapy, encouraged the patient to verbalize the concerns rather than to act out. [facility]# [id number]
--- NOTE | 2019-05-05 12:32 | Internal Medicine Prog Note ---
Internal Medicine Subjective - Subjective Patient seen and examined:: with staff, chart reviewed Patient is:: awake, verbal, interactive, in wheelchair Patient Complaints of:: cough Per staff patient has:: no adverse event, no episodes of fall, poor appetite Internal Medicine Objective - Physical Exam Vitals and I&O: Vital Signs Temp 97.3 F 05/05/19 05:59 Pulse 90 05/05/19 05:59 Resp 18 05/05/19 05:59 BP 108/69 05/05/19 05:59 Pulse Ox 90 05/05/19 05:59 Intake & Output 05/04/19 05/05/19 05/05/19 18:59 06:59 18:59 Intake Total 900 400 Balance 900 400 Intake: Oral 900 400 Other: # Voids 2 # Bowel Movements 2 0 Active Medications: Current Medications Acetaminophen (Tylenol) 650 mg PO Q4HR PRN PRN Reason: Temperature Above 100 Stop: 06/25/19 15:19 Last Admin: 05/04/19 16:59 Dose: 650 mg Albuterol Sulfate (Albuterol 2.5mg/3ml Neb Ud) 2.5 mg HHN QIDRT [facility] Stop: 06/25/19 18:59 Last Admin: 05/05/19 07:11 Dose: 2.5 mg Alprazolam (Xanax) 0.25 mg PO Q6HR PRN; Protocol PRN Reason: Anxiety Stop: 06/25/19 16:56 Last Admin: 05/05/19 04:29 Dose: 0.25 mg Budesonide (Pulmicort) 0.5 mg HHN BIDRT [facility] Stop: 06/26/19 18:59 Last Admin: 05/05/19 07:11 Dose: 0.5 mg [place] Oil/[place] Balsam/Trypsin (Venelex) 1 appl TP DAILY [facility] Stop: 06/29/19 08:59 Last Admin: 05/05/19 08:59 Dose: 1 appl Divalproex Sodium (Depakote Dr) 250 mg PO BID [facility]; Protocol Stop: 06/25/19 16:59 Last Admin: 05/05/19 08:58 Dose: 250 mg Docusate Sodium (Colace) 100 mg PO BID PRN PRN Reason: Constipation Stop: 06/25/19 17:55 Escitalopram Oxalate (Lexapro) 10 mg PO DAILY [facility]; Protocol Stop: 07/03/19 08:59 Last Admin: 05/05/19 08:58 Dose: 10 mg Furosemide (Lasix) 40 mg PO Q24HR PRN PRN Reason: EDEMA Stop: 06/25/19 18:44 Gabapentin (Neurontin) 300 mg PO BID [facility] Stop: 06/26/19 08:59 Last Admin: 05/05/19 08:58 Dose: 300 mg Ibuprofen (Motrin) 800 mg PO Q8HR PRN PRN Reason: Pain (Mild 1-3) Stop: 06/25/19 17:55 Last Admin: 05/05/19 06:16 Dose: 800 mg Neomycin/Polymyxin/Bacitracin (Triple Antibiotic Pkt) 1 pkt TP DAILY [facility] Stop: 06/27/19 08:59 Last Admin: 05/05/19 08:58 Dose: 1 pkt Potassium Chloride (Klor-Con) 20 meq PO DAILY [facility] Stop: 06/26/19 08:59 Last Admin: 05/05/19 08:58 Dose: 20 meq Prednisone (Deltasone) 10 mg PO DAILY [facility] Stop: 06/26/19 08:59 Last Admin: 05/05/19 08:58 Dose: 10 mg Promethazine HCl (Phenergan) 6.25 mg PO Q6HR PRN PRN Reason: Cough Stop: 06/25/19 17:55 Last Admin: 05/05/19 09:00 Dose: 6.25 mg Ropinirole HCl (Requip) 0.25 mg PO TID [facility] Stop: 06/25/19 20:59 Last Admin: 05/05/19 08:58 Dose: 0.25 mg Zolpidem Tartrate (Ambien) 5 mg PO HSMR1 PRN PRN Reason: Insomnia Stop: 06/25/19 15:19 Last Admin: 05/04/19 20:43 Dose: 5 mg General: alert HEENT: NC/AT, PERRLA, EOMI Neck: Supple, No JVD Lungs: CTAB Cardiovascular: RRR, Normal S1, Normal S2, with murmur Abdomen: soft, thin, positive bowel sound Extremities: clear, contracture Neurological: no change Internal Medicine Assmt/Plan - Assessment Assessment: - Assessment Assessment: Acute renal insufficiency Lung CA with left upper chest port Hyperlipidemia PVD RA - Plan Plan: - - Plan Plan: continue home medications fall precautions respiratory tx as needed supplemental O2 will continue to follow patient cpm Nutritional Asmnt/Malnutr-PDOC - Dietary Evaluation Malnutrition Findings (Please click <Entered> for more info): Nutritional Asmnt/Malnutrition Start: 04/29/19 14: 16 Text: Status: Complete Freq: Protocol: Document 04/29/19 14:16 CARMEN (Rec: 04/29/19 14:19 [email or web address]) Nutritional Asmnt/Malnutrition Patient General Information Nutritional Screening Moderate Risk Diagnosis Psychosis Pertinent Medical Hx/Surgical Hx Lung CA with LT Upper Chest Port, Hyperlipidemia, Alzheimers Disease, PVD, RA, COPD, Depression, AKF Subjective Information Pt is a 84-year-old female admitted on 04/26 d/t agitation and aggressive behavior. Pt is eating an estimated 60% of meals since admit date (x3 days) Per Meal/Nutrition Activity Record. Dietary is currently providing an estimated 1750 kcals and 100 gm Pro, per Pt PO intake this is providing an estimated 1050 kcals and 60gm Pro to meet 78 % kcal and 100% Pro needs. Will continue to monitor PO intake. Spoke with pt nurse Anahy concerning pt A1c order, nurse to follow-up. Anthropometrics HT: 53 WT: 120 LB (54.55 kg) BMI: 21.26 (normal) GI/ Skin Integrity GI: WNL, Soft BM: 04/27 x2 I/O: 1340/Not Noted Skin: Dryness, Redness, Bruises Hunter: 17 Diet Order: [facility] Estimated Energy Needs: ( Geriatric, CBW) 4596-3906 kcals (25-30 kcals/ kg) 55-65g Pro (1.0-1.2 g/kg) 2520-6474 ml (25-30 ml/kg) Current Diet Order/ Nutrition Support [facility] Pertinent Medications Albuterol (PRN), Pulmicort, Colace, Lasix, Klor-con, Deltasone Pertinent Labs 04/25: Glucose 162, BUN/Cr 27/0 .81, Ca 7.6, T Protein 5.3, Albumin 2.6, Hgb/Hct 9.7/30.2 Nutritional Hx/Data Height 1.6 m Height (Calculated Centimeters) 160.0 Current Weight (lbs) 54.431 kg Weight (Calculated Kilograms) 54.4 Weight (Calculated Grams) 35543.1 [place] Body Weight 115 LB (52.27 kg) % [place] Body Weight 104 Body Mass Index (BMI) 21.2 Weight Status Overweight GI Symptoms Last BM 04/27 x2 Skin Integrity/Comment: Skin: Dryness, Redness, Bruises Hunter: 17 Current %PO Fair (50-74%) Estimated Nutritional Goals BEE in Kcals: Using Current wt Calories/Kcals/Kg 25-30 Kcals Calculated 2092-7769 Protein: Using Current wt Protein g/k.0-1.2 Protein Calculated 55-65 Fluid: ml 2727-4020 ml (25-30 ml/kg Nutritional Problem 1. Problem Problem Impaired nutrient utilization Etiology r/t endocrine dysfunction Signs/Symptoms: aeb labs (04/25) Glucose 162. Malnutrition Related to Morbid Obesity Malnutrition related to morbid obesity No Intervention/Recommendation Comments Continue CCHO diet as tolerated. Expected Outcomes/Goals Expected Outcomes/Goals 1.PO intake to continue to meet >75% of estimated nutritional needs. 2.Monitor PO intake, wt, nutrition related lab to trend WNL, and skin integrity to trend WNL. 3.F/U as low risk in 7-10 days , 05/05-05/08.
[2019-05-06] MEDS: Albuterol Nebulizer 2.5mg/3mL HHN SCH ×4 (07:30→19:21)
[2019-05-06] MEDS: Budesonide 0.5 Mg/2 mL Ud HHN SCH ×2 (07:30→19:21)
[2019-05-06] MEDS: Potassium Chloride 20 mEq ER Tab PO SCH (08:52)
[2019-05-06] MEDS: Escitalopram Oxalate 5 mg Tab PO SCH (08:52)
[2019-05-06] MEDS: Venelex 60gm Tube TP SCH (08:52)
[2019-05-06] MEDS: Triple Antibiotic 0.94 gm Pkt TP SCH (08:52)
--- NOTE | 2019-05-06 10:54 | Progress Notes ---
DATE: 05/06/2019 SUBJECTIVE: Staff was spoken to. The patient is interviewed. Mood is noted to be anxious. Affect is appropriate. The patient is not suicidal or homicidal. Insight and judgment are noted to be improving. Impulse control is noted to be fair. Coping skills are noted to be fair. The patient has been stating that she would be rather close to her home and inanimate rather than anyone else. The patient is motivated for treatment. ASSESSMENT: The patient is stabilizing. PLAN: To discharge the patient today for followup on outpatient basis. JOB# [id number]
--- NOTE | 2019-05-06 12:23 | Internal Medicine Prog Note ---
Internal Medicine Subjective - Subjective Patient seen and examined:: with staff, chart reviewed Patient is:: awake, verbal, interactive, in wheelchair Patient Complaints of:: cough Per staff patient has:: no adverse event, no episodes of fall, poor appetite Internal Medicine Objective - Physical Exam Vitals and I&O: Vital Signs Temp 97.9 F 05/06/19 06:40 Pulse 106 05/06/19 06:40 Resp 20 05/06/19 06:40 BP 155/76 05/06/19 06:40 Pulse Ox 93 05/06/19 06:40 Intake & Output 05/05/19 05/06/19 05/06/19 18:59 06:59 18:59 Intake Total 950 240 Balance 950 240 Intake: Oral 950 240 Other: # Voids 3 3 # Bowel Movements 1 0 Active Medications: Current Medications Acetaminophen (Tylenol) 650 mg PO Q4HR PRN PRN Reason: Temperature Above 100 Stop: 06/25/19 15:19 Last Admin: 05/04/19 16:59 Dose: 650 mg Albuterol Sulfate (Albuterol 2.5mg/3ml Neb Ud) 2.5 mg HHN QIDRT [facility] Stop: 06/25/19 18:59 Last Admin: 05/06/19 07:30 Dose: Not Given Alprazolam (Xanax) 0.25 mg PO Q6HR PRN; Protocol PRN Reason: Anxiety Stop: 06/25/19 16:56 Last Admin: 05/05/19 04:29 Dose: 0.25 mg Budesonide (Pulmicort) 0.5 mg HHN BIDRT [facility] Stop: 06/26/19 18:59 Last Admin: 05/06/19 07:30 Dose: Not Given [place] Oil/[place] Balsam/Trypsin (Venelex) 1 appl TP DAILY [facility] Stop: 06/29/19 08:59 Last Admin: 05/06/19 08:52 Dose: 1 appl Divalproex Sodium (Depakote Dr) 250 mg PO BID [facility]; Protocol Stop: 06/25/19 16:59 Last Admin: 05/06/19 08:52 Dose: 250 mg Docusate Sodium (Colace) 100 mg PO BID PRN PRN Reason: Constipation Stop: 06/25/19 17:55 Escitalopram Oxalate (Lexapro) 10 mg PO DAILY [facility]; Protocol Stop: 07/03/19 08:59 Last Admin: 05/06/19 08:52 Dose: 10 mg Furosemide (Lasix) 40 mg PO Q24HR PRN PRN Reason: EDEMA Stop: 06/25/19 18:44 Gabapentin (Neurontin) 300 mg PO BID [facility] Stop: 06/26/19 08:59 Last Admin: 05/06/19 08:52 Dose: 300 mg Ibuprofen (Motrin) 800 mg PO Q8HR PRN PRN Reason: Pain (Mild 1-3) Stop: 06/25/19 17:55 Last Admin: 05/05/19 13:26 Dose: 800 mg Neomycin/Polymyxin/Bacitracin (Triple Antibiotic Pkt) 1 pkt TP DAILY [facility] Stop: 06/27/19 08:59 Last Admin: 05/06/19 08:52 Dose: 1 pkt Potassium Chloride (Klor-Con) 20 meq PO DAILY [facility] Stop: 06/26/19 08:59 Last Admin: 05/06/19 08:52 Dose: 20 meq Prednisone (Deltasone) 10 mg PO DAILY [facility] Stop: 06/26/19 08:59 Last Admin: 05/06/19 08:52 Dose: 10 mg Promethazine HCl (Phenergan) 6.25 mg PO Q6HR PRN PRN Reason: Cough Stop: 06/25/19 17:55 Last Admin: 05/05/19 16:49 Dose: 6.25 mg Ropinirole HCl (Requip) 0.25 mg PO TID [facility] Stop: 06/25/19 20:59 Last Admin: 05/06/19 08:52 Dose: 0.25 mg Zolpidem Tartrate (Ambien) 5 mg PO HSMR1 PRN PRN Reason: Insomnia Stop: 06/25/19 15:19 Last Admin: 05/06/19 01:53 Dose: 5 mg General: alert HEENT: NC/AT, PERRLA, EOMI Neck: Supple, No JVD Lungs: CTAB Cardiovascular: RRR, Normal S1, Normal S2, with murmur Abdomen: soft, thin, positive bowel sound Extremities: clear, contracture Neurological: no change Internal Medicine Assmt/Plan - Assessment Assessment: - Assessment Assessment: Acute renal insufficiency Lung CA with left upper chest port Hyperlipidemia PVD RA - Plan Plan: - - Plan Plan: continue home medications fall precautions respiratory tx as needed supplemental O2 will continue to follow patient cpm Nutritional Asmnt/Malnutr-PDOC - Dietary Evaluation Malnutrition Findings (Please click <Entered> for more info): Nutritional Asmnt/Malnutrition Start: 04/29/19 14: 16 Text: Status: Complete Freq: Protocol: Document 04/29/19 14:16 CARMEN (Rec: 04/29/19 14:19 [email or web address]) Nutritional Asmnt/Malnutrition Patient General Information Nutritional Screening Moderate Risk Diagnosis Psychosis Pertinent Medical Hx/Surgical Hx Lung CA with LT Upper Chest Port, Hyperlipidemia, Alzheimers Disease, PVD, RA, COPD, Depression, AKF Subjective Information Pt is a 84-year-old female admitted on 04/26 d/t agitation and aggressive behavior. Pt is eating an estimated 60% of meals since admit date (x3 days) Per Meal/Nutrition Activity Record. Dietary is currently providing an estimated 1750 kcals and 100 gm Pro, per Pt PO intake this is providing an estimated 1050 kcals and 60gm Pro to meet 78 % kcal and 100% Pro needs. Will continue to monitor PO intake. Spoke with pt nurse Anahy concerning pt A1c order, nurse to follow-up. Anthropometrics HT: 53 WT: 120 LB (54.55 kg) BMI: 21.26 (normal) GI/ Skin Integrity GI: WNL, Soft BM: 04/27 x2 I/O: 1340/Not Noted Skin: Dryness, Redness, Bruises Hunter: 17 Diet Order: [facility] [place] Estimated Energy Needs: ( Geriatric, CBW) 5039-6512 kcals (25-30 kcals/ kg) 55-65g Pro (1.0-1.2 g/kg) 0891-3590 ml (25-30 ml/kg) Current Diet Order/ Nutrition Support [facility] [place] Pertinent Medications Albuterol (PRN), Pulmicort, Colace, Lasix, Klor-con, Deltasone Pertinent Labs 04/25: Glucose 162, BUN/Cr 27/0 .81, Ca 7.6, T Protein 5.3, Albumin 2.6, Hgb/Hct 9.7/30.2 Nutritional Hx/Data Height 1.6 m Height (Calculated Centimeters) 160.0 Current Weight (lbs) 54.431 kg Weight (Calculated Kilograms) 54.4 Weight (Calculated Grams) 36511.1 [place] Body Weight 115 LB (52.27 kg) % [place] Body Weight 104 Body Mass Index (BMI) 21.2 Weight Status Overweight GI Symptoms Last BM 04/27 x2 Skin Integrity/Comment: Skin: Dryness, Redness, Bruises Hunter: 17 Current %PO Fair (50-74%) Estimated Nutritional Goals BEE in Kcals: Using Current wt Calories/Kcals/Kg 25-30 Kcals Calculated 8192-7640 Protein: Using Current wt Protein g/k.0-1.2 Protein Calculated 55-65 Fluid: ml 4211-2872 ml (25-30 ml/kg Nutritional Problem 1. Problem Problem Impaired nutrient utilization Etiology r/t endocrine dysfunction Signs/Symptoms: aeb labs (04/25) Glucose 162. Malnutrition Related to Morbid Obesity Malnutrition related to morbid obesity No Intervention/Recommendation Comments Continue CCHO diet as tolerated. Expected Outcomes/Goals Expected Outcomes/Goals 1.PO intake to continue to meet >75% of estimated nutritional needs. 2.Monitor PO intake, wt, nutrition related lab to trend WNL, and skin integrity to trend WNL. 3.F/U as low risk in 7-10 days , 05/05-05/08.
--- NOTE | 2019-05-06 17:43 | Progress Notes ---
DATE: 05/05/2019 PSYCHOLOGY PROGRESS NOTE SUBJECTIVE: The patient is seen and is interviewed. Case is discussed with staff. The patient is seen in her room. The patient states that no one understands what she is going through and that she needs to be discharged immediately. The patient continues to request to be discharged to her home. Staff reports the patient continues to be withdrawn and isolative. However, the patient is compliant with the medications. OBJECTIVE: Mood is mildly irritable and depressed. Affect is broad and animated. The patient seems frustrated and is demanding to be discharged. The patient denied any auditory or visual hallucinations. The patient's sleep and appetite are fair. The patient is compliant with the medication, but is not participating in the milieu therapy. ASSESSMENT: The patient's depression persists. PLAN: We provided continued supportive psychotherapy and included reality integration. We provided remotivation for the patient to verbalize her concerns. We provided coping strategies for phase of life issues. We also provided problem solving and brief solution focus therapy to decrease the patient's depression and also assist the patient in understanding more clearly her current circumstances. We provided decision making as well. We provided coping methods for change in lifestyle and to adjust to her current circumstances and medical condition. We provided stress management also to assist the patient in increasing her frustration tolerance. We will follow up in 2-3 days if the patient remains on the unit. JOB# [id number] RACHEL
[2019-05-07] MEDS: Albuterol Nebulizer 2.5mg/3mL HHN SCH ×4 (06:39→19:07)
[2019-05-07] MEDS: Budesonide 0.5 Mg/2 mL Ud HHN SCH ×2 (06:39→19:07)
[2019-05-07] MEDS: Venelex 60gm Tube TP SCH (09:16)
[2019-05-07] MEDS: Triple Antibiotic 0.94 gm Pkt TP SCH (09:16)
[2019-05-07] MEDS: Potassium Chloride 20 mEq ER Tab PO SCH (09:17)
[2019-05-07] MEDS: Escitalopram Oxalate 5 mg Tab PO SCH (09:17)
--- NOTE | 2019-05-07 13:04 | Internal Medicine Prog Note ---
Internal Medicine Subjective - Subjective Patient seen and examined:: with staff, chart reviewed Patient is:: awake, verbal, interactive, in wheelchair Patient Complaints of:: cough Per staff patient has:: no adverse event, no episodes of fall, poor appetite Internal Medicine Objective - Physical Exam Vitals and I&O: Vital Signs Temp 98.7 F 05/07/19 05:41 Pulse 100 05/07/19 05:41 Resp 20 05/07/19 05:41 BP 98/59 05/06/19 20:00 Pulse Ox 100 05/07/19 05:41 Intake & Output 05/06/19 05/07/19 05/07/19 18:59 06:59 18:59 Intake Total 1200 Balance 1200 Intake: Oral 1200 Other: # Voids 3 3 # Bowel Movements 0 0 Active Medications: Current Medications Acetaminophen (Tylenol) 650 mg PO Q4HR PRN PRN Reason: Temperature Above 100 Stop: 06/25/19 15:19 Last Admin: 05/04/19 16:59 Dose: 650 mg Albuterol Sulfate (Albuterol 2.5mg/3ml Neb Ud) 2.5 mg HHN QIDRT [facility] Stop: 06/25/19 18:59 Last Admin: 05/07/19 11:30 Dose: Not Given Alprazolam (Xanax) 0.25 mg PO Q6HR PRN; Protocol PRN Reason: Anxiety Stop: 06/25/19 16:56 Last Admin: 05/05/19 04:29 Dose: 0.25 mg Budesonide (Pulmicort) 0.5 mg HHN BIDRT [facility] Stop: 06/26/19 18:59 Last Admin: 05/07/19 06:39 Dose: Not Given [place] Oil/[place] Balsam/Trypsin (Venelex) 1 appl TP DAILY [facility] Stop: 06/29/19 08:59 Last Admin: 05/07/19 09:16 Dose: 1 appl Divalproex Sodium (Depakote Dr) 250 mg PO BID [facility]; Protocol Stop: 06/25/19 16:59 Last Admin: 05/07/19 09:16 Dose: 250 mg Docusate Sodium (Colace) 100 mg PO BID PRN PRN Reason: Constipation Stop: 06/25/19 17:55 Escitalopram Oxalate (Lexapro) 10 mg PO DAILY [facility]; Protocol Stop: 07/07/19 08:59 Furosemide (Lasix) 40 mg PO Q24HR PRN PRN Reason: EDEMA Stop: 06/25/19 18:44 Gabapentin (Neurontin) 300 mg PO BID [facility] Stop: 06/26/19 08:59 Last Admin: 05/07/19 09:17 Dose: 300 mg Ibuprofen (Motrin) 800 mg PO Q8HR PRN PRN Reason: Pain (Mild 1-3) Stop: 06/25/19 17:55 Last Admin: 05/05/19 13:26 Dose: 800 mg Neomycin/Polymyxin/Bacitracin (Triple Antibiotic Pkt) 1 pkt TP DAILY [facility] Stop: 06/27/19 08:59 Last Admin: 05/07/19 09:16 Dose: 1 pkt Potassium Chloride (Klor-Con) 20 meq PO DAILY [facility] Stop: 06/26/19 08:59 Last Admin: 05/07/19 09:17 Dose: Not Given Prednisone (Deltasone) 10 mg PO DAILY [facility] Stop: 06/26/19 08:59 Last Admin: 05/07/19 09:20 Dose: 10 mg Promethazine HCl (Phenergan) 6.25 mg PO Q6HR PRN PRN Reason: Cough Stop: 06/25/19 17:55 Last Admin: 05/05/19 16:49 Dose: 6.25 mg Ropinirole HCl (Requip) 0.25 mg PO TID [facility] Stop: 06/25/19 20:59 Last Admin: 05/07/19 09:17 Dose: 0.25 mg Zolpidem Tartrate (Ambien) 5 mg PO HSMR1 PRN PRN Reason: Insomnia Stop: 06/25/19 15:19 Last Admin: 05/07/19 02:13 Dose: 5 mg General: alert HEENT: NC/AT, PERRLA, EOMI Neck: Supple, No JVD Lungs: CTAB Cardiovascular: RRR, Normal S1, Normal S2, with murmur Abdomen: soft, thin, positive bowel sound Extremities: clear, contracture Neurological: no change Internal Medicine Assmt/Plan - Assessment Assessment: - Assessment Assessment: Acute renal insufficiency Lung CA with left upper chest port Hyperlipidemia PVD RA - Plan Plan: - - Plan Plan: continue home medications fall precautions respiratory tx as needed supplemental O2 will continue to follow patient cpm Nutritional Asmnt/Malnutr-PDOC - Dietary Evaluation Malnutrition Findings (Please click <Entered> for more info): Nutritional Asmnt/Malnutrition Start: 04/29/19 14: 16 Text: Status: Complete Freq: Protocol: Document 04/29/19 14:16 CARMEN (Rec: 04/29/19 14:19 CARMEN [email or web address]) Nutritional Asmnt/Malnutrition Patient General Information Nutritional Screening Moderate Risk Diagnosis Psychosis Pertinent Medical Hx/Surgical Hx Lung CA with LT Upper Chest Port, Hyperlipidemia, Alzheimers Disease, PVD, RA, COPD, Depression, AKF Subjective Information Pt is a 84-year-old female admitted on 04/26 d/t agitation and aggressive behavior. Pt is eating an estimated 60% of meals since admit date (x3 days) Per Meal/Nutrition Activity Record. Dietary is currently providing an estimated 1750 kcals and 100 gm Pro, per Pt PO intake this is providing an estimated 1050 kcals and 60gm Pro to meet 78 % kcal and 100% Pro needs. Will continue to monitor PO intake. Spoke with pt nurse Anahy concerning pt A1c order, nurse to follow-up. Anthropometrics HT: 53 WT: 120 LB (54.55 kg) BMI: 21.26 (normal) GI/ Skin Integrity GI: WNL, Soft BM: 04/27 x2 I/O: 1340/Not Noted Skin: Dryness, Redness, Bruises Hunter: 17 Diet Order: [facility] Estimated Energy Needs: ( Geriatric, CBW) 7667-2554 kcals (25-30 kcals/ kg) 55-65g Pro (1.0-1.2 g/kg) 1876-5510 ml (25-30 ml/kg) Current Diet Order/ Nutrition Support [facility] Pertinent Medications Albuterol (PRN), Pulmicort, Colace, Lasix, Klor-con, Deltasone Pertinent Labs 04/25: Glucose 162, BUN/Cr 27/0 .81, Ca 7.6, T Protein 5.3, Albumin 2.6, Hgb/Hct 9.7/30.2 Nutritional Hx/Data Height 1.6 m Height (Calculated Centimeters) 160.0 Current Weight (lbs) 54.431 kg Weight (Calculated Kilograms) 54.4 Weight (Calculated Grams) 33658.1 [place] Body Weight 115 LB (52.27 kg) % [place] Body Weight 104 Body Mass Index (BMI) 21.2 Weight Status Overweight GI Symptoms Last BM 04/27 x2 Skin Integrity/Comment: Skin: Dryness, Redness, Bruises Hunter: 17 Current %PO Fair (50-74%) Estimated Nutritional Goals BEE in Kcals: Using Current wt Calories/Kcals/Kg 25-30 Kcals Calculated 5075-0452 Protein: Using Current wt Protein g/k.0-1.2 Protein Calculated 55-65 Fluid: ml 3054-7144 ml (25-30 ml/kg Nutritional Problem 1. Problem Problem Impaired nutrient utilization Etiology r/t endocrine dysfunction Signs/Symptoms: aeb labs (04/25) Glucose 162. Malnutrition Related to Morbid Obesity Malnutrition related to morbid obesity No Intervention/Recommendation Comments Continue CCHO diet as tolerated. Expected Outcomes/Goals Expected Outcomes/Goals 1.PO intake to continue to meet >75% of estimated nutritional needs. 2.Monitor PO intake, wt, nutrition related lab to trend WNL, and skin integrity to trend WNL. 3.F/U as low risk in 7-10 days , 05/05-05/08.
--- NOTE | 2019-05-07 14:12 | Progress Notes ---
DATE: 05/07/2019 PSYCHIATRIC PROGRESS NOTE SUBJECTIVE: Staff was spoken to. The patient is interviewed. Mood is noted to be irritable. Affect is constricted. The patient is stating that she is frustrated for being in here. Still the patient is stating that she needs to go to the facility close to her residence in ____ and wants to get all the belongings from the previous placement. Insight and judgment at this time are noted to be still impaired. Impulse control seems to be improving. No side effects to the medications are noted. ASSESSMENT: The patient is awaiting placement. PLAN: To continue the patient with the supportive therapy and followup. JOB# [id number]
[2019-05-08] MEDS: Albuterol Nebulizer 2.5mg/3mL HHN SCH ×4 (06:44→19:20)
[2019-05-08] MEDS: Budesonide 0.5 Mg/2 mL Ud HHN SCH ×2 (06:45→19:20)
[2019-05-08] MEDS: Triple Antibiotic 0.94 gm Pkt TP SCH (08:55)
[2019-05-08] MEDS: Venelex 60gm Tube TP SCH (08:55)
[2019-05-08] MEDS: Potassium Chloride 20 mEq ER Tab PO SCH (08:56)
--- NOTE | 2019-05-08 10:34 | Progress Notes ---
DATE: PSYCHOLOGY PROGRESS NOTE SUBJECTIVE: The patient is seen up in her wheelchair in the activity area. The patient is responsive. Mood seems to be less irritable and friendly; however, the patient continued to state that she is requesting to be discharged directly to her own home. This has been discussed with the patient as a non-option and has been discussed repeatedly. The patient continues to ask for her belongings to be transferred to the hospital and then to some other placement. Case management continues to work with the patient. OBJECTIVE: Mood is less depressed, but includes frustration. Affect is animated. Thought process includes perseveration on discharge and returning to her own home. The patient denied any hallucinations or delusions. The patient' s impulse control seems to be improving and she is compliant with the medications. ASSESSMENT AND PLAN: The patient is awaiting placement and is improving. PLAN: We provided coping strategies for phase of life issues. We provided reality testing and reality integration to include stress management to assist the patient in increasing her frustration tolerance. We provided adjustment to the patient's current circumstances and to accept placement in a facility. We will follow up in 2-3 days if the patient remains on the unit. The patient most likely will be discharging tomorrow according to the staff. JOB# [id number] RACHEL
--- NOTE | 2019-05-08 12:11 | Progress Notes ---
DATE: 05/08/2019 PSYCHIATRIC PROGRESS NOTE SUBJECTIVE: Staff was spoken to. The patient is interviewed. Mood is irritable. Affect is constricted. Insight and judgment are noted to be still impaired. Impulse control is noted to be limited. Coping skills are noted to be limited. The patient has been having difficult time to cope with the stress. The patient is still screaming and yelling and stating that she needs to go to [place]. ASSESSMENT: The patient is still depressed and awaiting placement. PLAN: To continue the patient with the supportive therapy and followup. JOB# [id number]
--- NOTE | 2019-05-08 12:44 | Internal Medicine Prog Note ---
Internal Medicine Subjective - Subjective Patient seen and examined:: with staff, chart reviewed Patient is:: awake, verbal, interactive, in wheelchair Patient Complaints of:: cough Per staff patient has:: no adverse event, no episodes of fall, poor appetite Internal Medicine Objective - Results Recent Labs: Laboratory Last Values POC Glucose 93 MG/DL (70 - 105) 05/07/19 21:31 - Physical Exam Vitals and I&O: Vital Signs Temp 98.1 F 05/08/19 07:01 Pulse 94 05/08/19 07:01 Resp 18 05/08/19 07:01 BP 119/59 05/08/19 07:01 Pulse Ox 97 05/08/19 07:01 Intake & Output 05/07/19 05/08/19 05/08/19 18:59 06:59 18:59 Intake Total 1200 120 120 Output Total 1 Balance 1199 120 120 Intake: Oral 1200 120 120 Output: Stool 1 Other: # Voids 2 2 # Bowel Movements 0 0 Stool Characteristics Soft Brown Active Medications: Current Medications Acetaminophen (Tylenol) 650 mg PO Q4HR PRN PRN Reason: Temperature Above 100 Stop: 06/25/19 15:19 Last Admin: 05/04/19 16:59 Dose: 650 mg Albuterol Sulfate (Albuterol 2.5mg/3ml Neb Ud) 2.5 mg HHN QIDRT [facility] Stop: 06/25/19 18:59 Last Admin: 05/08/19 06:44 Dose: 2.5 mg Alprazolam (Xanax) 0.25 mg PO Q6HR PRN; Protocol PRN Reason: Anxiety Stop: 06/25/19 16:56 Last Admin: 05/05/19 04:29 Dose: 0.25 mg Budesonide (Pulmicort) 0.5 mg HHN BIDRT [facility] Stop: 06/26/19 18:59 Last Admin: 05/08/19 06:45 Dose: 0.5 mg [place] Oil/[place] Balsam/Trypsin (Venelex) 1 appl TP DAILY [facility] Stop: 06/29/19 08:59 Last Admin: 05/08/19 08:55 Dose: 1 appl Divalproex Sodium (Depakote Dr) 250 mg PO BID [facility]; Protocol Stop: 06/25/19 16:59 Last Admin: 05/08/19 08:55 Dose: 250 mg Docusate Sodium (Colace) 100 mg PO BID PRN PRN Reason: Constipation Stop: 06/25/19 17:55 Escitalopram Oxalate (Lexapro) 10 mg PO DAILY [facility]; Protocol Stop: 07/07/19 08:59 Last Admin: 05/08/19 08:56 Dose: 10 mg Furosemide (Lasix) 40 mg PO Q24HR PRN PRN Reason: EDEMA Stop: 06/25/19 18:44 Gabapentin (Neurontin) 300 mg PO BID [facility] Stop: 06/26/19 08:59 Last Admin: 05/08/19 08:55 Dose: 300 mg Ibuprofen (Motrin) 800 mg PO Q8HR PRN PRN Reason: Pain (Mild 1-3) Stop: 06/25/19 17:55 Last Admin: 05/07/19 21:10 Dose: 800 mg Neomycin/Polymyxin/Bacitracin (Triple Antibiotic Pkt) 1 pkt TP DAILY [facility] Stop: 06/27/19 08:59 Last Admin: 05/08/19 08:55 Dose: 1 pkt Potassium Chloride (Klor-Con) 20 meq PO DAILY [facility] Stop: 06/26/19 08:59 Last Admin: 05/08/19 08:56 Dose: 20 meq Prednisone (Deltasone) 10 mg PO DAILY [facility] Stop: 06/26/19 08:59 Last Admin: 05/08/19 08:56 Dose: 10 mg Promethazine HCl (Phenergan) 6.25 mg PO Q6HR PRN PRN Reason: Cough Stop: 06/25/19 17:55 Last Admin: 05/08/19 08:55 Dose: 6.25 mg Ropinirole HCl (Requip) 0.25 mg PO TID [facility] Stop: 06/25/19 20:59 Last Admin: 05/08/19 08:55 Dose: 0.25 mg Zolpidem Tartrate (Ambien) 5 mg PO HSMR1 PRN PRN Reason: Insomnia Stop: 06/25/19 15:19 Last Admin: 05/07/19 21:11 Dose: 5 mg General: alert HEENT: NC/AT, PERRLA, EOMI Neck: Supple, No JVD Lungs: CTAB Cardiovascular: RRR, Normal S1, Normal S2, with murmur Abdomen: soft, thin, positive bowel sound Extremities: clear, contracture Neurological: no change Internal Medicine Assmt/Plan - Assessment Assessment: - Assessment Assessment: Acute renal insufficiency Lung CA with left upper chest port Hyperlipidemia PVD RA - Plan Plan: - - Plan Plan: continue home medications fall precautions respiratory tx as needed supplemental O2 will continue to follow patient cpm Nutritional Asmnt/Malnutr-PDOC - Dietary Evaluation Malnutrition Findings (Please click <Entered> for more info): Nutritional Asmnt/Malnutrition Start: 04/29/19 14: 16 Text: Status: Complete Freq: Protocol: Document 04/29/19 14:16 CARMEN (Rec: 04/29/19 14:19 CARMEN [email or web address]) Nutritional Asmnt/Malnutrition Patient General Information Nutritional Screening Moderate Risk Diagnosis Psychosis Pertinent Medical Hx/Surgical Hx Lung CA with LT Upper Chest Port, Hyperlipidemia, Alzheimers Disease, PVD, RA, COPD, Depression, AKF Subjective Information Pt is a 84-year-old female admitted on 04/26 d/t agitation and aggressive behavior. Pt is eating an estimated 60% of meals since admit date (x3 days) Per Meal/Nutrition Activity Record. Dietary is currently providing an estimated 1750 kcals and 100 gm Pro, per Pt PO intake this is providing an estimated 1050 kcals and 60gm Pro to meet 78 % kcal and 100% Pro needs. Will continue to monitor PO intake. Spoke with pt nurse Anahy concerning pt A1c order, nurse to follow-up. Anthropometrics HT: 53 WT: 120 LB (54.55 kg) BMI: 21.26 (normal) GI/ Skin Integrity GI: WNL, Soft BM: 04/27 x2 I/O: 1340/Not Noted Skin: Dryness, Redness, Bruises Hunter: 17 [facility] Estimated Energy Needs: ( Geriatric, CBW) 3141-3313 kcals (25-30 kcals/ kg) 55-65g Pro (1.0-1.2 g/kg) 4675-7997 ml (25-30 ml/kg) Current Diet Order/ Nutrition Support [facility] Pertinent Medications Albuterol (PRN), Pulmicort, Colace, Lasix, Klor-con, Deltasone Pertinent Labs 04/25: Glucose 162, BUN/Cr 27/0 .81, Ca 7.6, T Protein 5.3, Albumin 2.6, Hgb/Hct 9.7/30.2 Nutritional Hx/Data Height 1.6 m Height (Calculated Centimeters) 160.0 Current Weight (lbs) 54.431 kg Weight (Calculated Kilograms) 54.4 Weight (Calculated Grams) 80945.1 [place] Body Weight 115 LB (52.27 kg) % [place] Body Weight 104 Body Mass Index (BMI) 21.2 Weight Status Overweight GI Symptoms Last BM 04/27 x2 Skin Integrity/Comment: Skin: Dryness, Redness, Bruises Hunter: 17 Current %PO Fair (50-74%) Estimated Nutritional Goals BEE in Kcals: Using Current wt Calories/Kcals/Kg 25-30 Kcals Calculated 2834-3124 Protein: Using Current wt Protein g/k.0-1.2 Protein Calculated 55-65 Fluid: ml 8428-5561 ml (25-30 ml/kg Nutritional Problem 1. Problem Problem Impaired nutrient utilization Etiology r/t endocrine dysfunction Signs/Symptoms: aeb labs (04/25) Glucose 162. Malnutrition Related to Morbid Obesity Malnutrition related to morbid obesity No Intervention/Recommendation Comments Continue CCHO diet as tolerated. Expected Outcomes/Goals Expected Outcomes/Goals 1.PO intake to continue to meet >75% of estimated nutritional needs. 2.Monitor PO intake, wt, nutrition related lab to trend WNL, and skin integrity to trend WNL. 3.F/U as low risk in 7-10 days , 05/05-05/08.
[2019-05-09] MEDS: Budesonide 0.5 Mg/2 mL Ud HHN SCH ×2 (06:20→19:52)
[2019-05-09] MEDS: Albuterol Nebulizer 2.5mg/3mL HHN SCH ×4 (06:20→19:52)
[2019-05-09] MEDS: Venelex 60gm Tube TP SCH (08:22)
[2019-05-09] MEDS: Potassium Chloride 20 mEq ER Tab PO SCH (08:23)
[2019-05-09] MEDS: Triple Antibiotic 0.94 gm Pkt TP SCH (08:23)
--- NOTE | 2019-05-09 11:12 | Discharge Summary ---
DATE OF DISCHARGE: 05/09/2019 IDENTIFYING DATA: The patient is an 84-year-old woman, resident of [facility]. JUSTIFICATION OF HOSPITALIZATION: The patient is admitted for acute mood swings and depression. CHIEF COMPLAINT: "I can't be here. I need to be out at my own place." DIAGNOSES AT THE TIME OF ADMISSION: AXIS I: Major depressive disorder, recurrent and moderate. B: Dementia and behavioral changes secondary to dementia. AXIS II: None. AXIS III: As per Dr. Ch. HISTORY OF PRESENT ILLNESS: Please review the 04/26/2019 dictation done by me. HOSPITAL COURSE AND RESPONSE TO TREATMENT: The patient has been observed and closely monitor. The patient tends to scream and yell. The patient has been placed on the valproic acid 250 mg twice a day for her mood swings. The patient also has been continued on the Lexapro 10 mg in the morning. With these medications, the patient has been observed and was finally discharged with recommendation that she is going to be seeking treatment on an outpatient basis. MENTAL STATUS EXAMINATION AT THE TIME OF DISCHARGE: The patient's mood is noted to be less irritable. Affect is appropriate. Not suicidal or homicidal. Insight and judgment are noted to be improving. Impulse control is noted to be fair. The patient is motivated to seek treatment on an outpatient basis by Dr. Coelho. PROGNOSIS: At the time of discharge is noted to be fair with the treatment. JOB# [id number]
--- NOTE | 2019-05-09 12:52 | Internal Medicine Prog Note ---
Internal Medicine Subjective - Subjective Patient seen and examined:: with staff, chart reviewed Patient is:: awake, verbal, interactive, in wheelchair Patient Complaints of:: cough Per staff patient has:: no adverse event, no episodes of fall, poor appetite Internal Medicine Objective - Results Recent Labs: Laboratory Last Values POC Glucose 93 MG/DL (70 - 105) 05/07/19 21:31 - Physical Exam Vitals and I&O: Vital Signs Temp 98.9 F 05/09/19 06:13 Pulse 102 05/09/19 06:13 Resp 18 05/09/19 06:13 BP 110/80 05/09/19 06:13 Pulse Ox 96 05/09/19 06:13 Intake & Output 05/08/19 05/09/19 05/09/19 18:59 06:59 18:59 Intake Total 1080 240 Balance 1080 240 Intake: Oral 1080 240 Other: # Voids 4 2 # Bowel Movements 2 0 Stool Characteristics Soft Soft Active Medications: Current Medications Acetaminophen (Tylenol) 650 mg PO Q4HR PRN PRN Reason: Temperature Above 100 Stop: 06/25/19 15:19 Last Admin: 05/04/19 16:59 Dose: 650 mg Albuterol Sulfate (Albuterol 2.5mg/3ml Neb Ud) 2.5 mg HHN QIDRT [facility] Stop: 06/25/19 18:59 Last Admin: 05/09/19 06:20 Dose: 2.5 mg Alprazolam (Xanax) 0.25 mg PO Q6HR PRN; Protocol PRN Reason: Anxiety Stop: 06/25/19 16:56 Last Admin: 05/05/19 04:29 Dose: 0.25 mg Budesonide (Pulmicort) 0.5 mg HHN BIDRT [facility] Stop: 06/26/19 18:59 Last Admin: 05/09/19 06:20 Dose: 0.5 mg [place] Oil/Turk[place] Balsam/Trypsin (Venelex) 1 appl TP DAILY [facility] Stop: 06/29/19 08:59 Last Admin: 05/09/19 08:22 Dose: 1 appl Divalproex Sodium (Depakote Dr) 250 mg PO BID [facility]; Protocol Stop: 06/25/19 16:59 Last Admin: 05/09/19 08:23 Dose: 250 mg Docusate Sodium (Colace) 100 mg PO BID PRN PRN Reason: Constipation Stop: 06/25/19 17:55 Escitalopram Oxalate (Lexapro) 10 mg PO DAILY [facility]; Protocol Stop: 07/07/19 08:59 Last Admin: 05/09/19 08:23 Dose: 10 mg Furosemide (Lasix) 40 mg PO Q24HR PRN PRN Reason: EDEMA Stop: 06/25/19 18:44 Gabapentin (Neurontin) 300 mg PO BID [facility] Stop: 06/26/19 08:59 Last Admin: 05/09/19 08:23 Dose: 300 mg Ibuprofen (Motrin) 800 mg PO Q8HR PRN PRN Reason: Pain (Mild 1-3) Stop: 06/25/19 17:55 Last Admin: 05/07/19 21:10 Dose: 800 mg Neomycin/Polymyxin/Bacitracin (Triple Antibiotic Pkt) 1 pkt TP DAILY [facility] Stop: 06/27/19 08:59 Last Admin: 05/09/19 08:23 Dose: 1 pkt Potassium Chloride (Klor-Con) 20 meq PO DAILY [facility] Stop: 06/26/19 08:59 Last Admin: 05/09/19 08:23 Dose: 20 meq Prednisone (Deltasone) 10 mg PO DAILY [facility] Stop: 06/26/19 08:59 Last Admin: 05/09/19 08:23 Dose: 10 mg Promethazine HCl (Phenergan) 6.25 mg PO Q6HR PRN PRN Reason: Cough Stop: 06/25/19 17:55 Last Admin: 05/09/19 08:23 Dose: 6.25 mg Ropinirole HCl (Requip) 0.25 mg PO TID [facility] Stop: 06/25/19 20:59 Last Admin: 05/09/19 08:23 Dose: 0.25 mg Zolpidem Tartrate (Ambien) 5 mg PO HSMR1 PRN PRN Reason: Insomnia Stop: 06/25/19 15:19 Last Admin: 05/09/19 02:43 Dose: 5 mg General: alert HEENT: NC/AT, PERRLA, EOMI Neck: Supple, No JVD Lungs: CTAB Cardiovascular: RRR, Normal S1, Normal S2, with murmur Abdomen: soft, thin, positive bowel sound Extremities: clear, contracture Neurological: no change Internal Medicine Assmt/Plan - Assessment Assessment: - Assessment Assessment: Acute renal insufficiency Lung CA with left upper chest port Hyperlipidemia PVD RA - Plan Plan: - - Plan Plan: continue home medications fall precautions respiratory tx as needed supplemental O2 will continue to follow patient cpm Nutritional Asmnt/Malnutr-PDOC - Dietary Evaluation Malnutrition Findings (Please click <Entered> for more info): Nutritional Asmnt/Malnutrition Start: 04/29/19 14: 16 Text: Status: Complete Freq: Protocol: Document 04/29/19 14:16 KENANYOKASTAALIYAH (Rec: 04/29/19 14:19 [email or web address] [email or web address]) Nutritional Asmnt/Malnutrition Patient General Information Nutritional Screening Moderate Risk Diagnosis Psychosis Pertinent Medical Hx/Surgical Hx Lung CA with LT Upper Chest Port, Hyperlipidemia, Alzheimers Disease, PVD, RA, COPD, Depression, AKF Subjective Information Pt is a 84-year-old female admitted on 04/26 d/t agitation and aggressive behavior. Pt is eating an estimated 60% of meals since admit date (x3 days) Per Meal/Nutrition Activity Record. Dietary is currently providing an estimated 1750 kcals and 100 gm Pro, per Pt PO intake this is providing an estimated 1050 kcals and 60gm Pro to meet 78 % kcal and 100% Pro needs. Will continue to monitor PO intake. Spoke with pt nurse Anahy concerning pt A1c order, nurse to follow-up. Anthropometrics HT: 53 WT: 120 LB (54.55 kg) BMI: 21.26 (normal) GI/ Skin Integrity GI: WNL, Soft BM: 04/27 x2 I/O: 1340/Not Noted Skin: Dryness, Redness, Bruises Hunter: 17 Diet Order: [facility] Estimated Energy Needs: ( Geriatric, CBW) 6868-7606 kcals (25-30 kcals/ kg) 55-65g Pro (1.0-1.2 g/kg) 8230-8749 ml (25-30 ml/kg) Current Diet Order/ Nutrition Support [facility] Pertinent Medications Albuterol (PRN), Pulmicort, Colace, Lasix, Klor-con, Deltasone Pertinent Labs 04/25: Glucose 162, BUN/Cr 27/0 .81, Ca 7.6, T Protein 5.3, Albumin 2.6, Hgb/Hct 9.7/30.2 Nutritional Hx/Data Height 1.6 m Height (Calculated Centimeters) 160.0 Current Weight (lbs) 54.431 kg Weight (Calculated Kilograms) 54.4 Weight (Calculated Grams) 89713.1 [place] Body Weight 115 LB (52.27 kg) % [place] Body Weight 104 Body Mass Index (BMI) 21.2 Weight Status Overweight GI Symptoms Last BM 04/27 x2 Skin Integrity/Comment: Skin: Dryness, Redness, Bruises Hunter: 17 Current %PO Fair (50-74%) Estimated Nutritional Goals BEE in Kcals: Using Current wt Calories/Kcals/Kg 25-30 Kcals Calculated 1908-9743 Protein: Using Current wt Protein g/k.0-1.2 Protein Calculated 55-65 Fluid: ml 2233-3354 ml (25-30 ml/kg Nutritional Problem 1. Problem Problem Impaired nutrient utilization Etiology r/t endocrine dysfunction Signs/Symptoms: aeb labs (04/25) Glucose 162. Malnutrition Related to Morbid Obesity Malnutrition related to morbid obesity No Intervention/Recommendation Comments Continue CCHO diet as tolerated. Expected Outcomes/Goals Expected Outcomes/Goals 1.PO intake to continue to meet >75% of estimated nutritional needs. 2.Monitor PO intake, wt, nutrition related lab to trend WNL, and skin integrity to trend WNL. 3.F/U as low risk in 7-10 days , 05/05-05/08.
[2019-05-10] MEDS: Albuterol Nebulizer 2.5mg/3mL HHN SCH ×4 (06:26→18:02)
[2019-05-10] MEDS: Budesonide 0.5 Mg/2 mL Ud HHN SCH ×2 (06:26→18:02)
[2019-05-10] MEDS: Potassium Chloride 20 mEq ER Tab PO SCH (08:54)
[2019-05-10] MEDS: Triple Antibiotic 0.94 gm Pkt TP SCH (08:55)
[2019-05-10] MEDS: Venelex 60gm Tube TP SCH (08:55)
--- NOTE | 2019-05-10 12:14 | Progress Notes ---
DATE: 05/09/2019 PSYCHOLOGY PROGRESS NOTE SUBJECTIVE: The patient is seen up in her wheelchair in her room. The patient was complaining about her roommate. The patient continues to singularly focus and fixate on being discharged directly to her home. Staff reports the patient has been compliant with her care with less agitation. OBJECTIVE: Mood is mildly irritable. Affect is constricted. There are no apparent mood swings; however, the patient continues to verbalize her confusion regarding living in her own home. The patient does not know where she was prior to her hospitalization. The patient denied being depressed at the time of this clinical interview. She denied any suicidal ideation, plan or intention but continues to be confused. Staff reports the patient is compliant with her medication. ASSESSMENT AND PLAN: The patient is noted to be improving. Impulse control has improved. The patient is awaiting placement. PLAN: We provided remotivation and positive reinforcement for the patient to stay compliant with her care and treatment. We provided reality testing, which is fair to poor. We provided reality integration as well as coping strategies for phase of life issues and to assist the patient in adjusting and accepting her current circumstances. No followup is indicated at this time, as the patient is most likely being discharged once placement has been arranged. JOB# [id number] RACHEL
--- NOTE | 2019-05-10 15:22 | Progress Notes ---
DATE: 05/10/2019 PSYCHIATRIC PROGRESS NOTE SUBJECTIVE: Staff was spoken to. The patient is interviewed. Mood is noted to be depressed. The patient is isolative and withdrawn. The patient is stating that she is feeling very weak and could not feel it out why. The staff was reporting that there is a sudden change in the mental status. The patient was on she came back, she has not been feeling well, it is requested that the staff contact Dr. Ch and possibly transfer the patient to the medical evaluation of this patient. ASSESSMENT: There is an acute change in the mental status. PLAN: Refer the patient to the medical unit for further stabilization. JOB# [id number]
--- NOTE | 2019-05-10 17:12 | Internal Medicine Prog Note ---
Internal Medicine Subjective - Subjective Patient seen and examined:: with staff, chart reviewed, other (co sob, not feeling well, was sent to er, cleared medically) Patient is:: awake, verbal, interactive, in wheelchair Patient Complaints of:: cough Per staff patient has:: no adverse event, no episodes of fall, poor appetite Internal Medicine Objective - Results Recent Labs: Laboratory Last Values POC Glucose 93 MG/DL (70 - 105) 05/07/19 21:31 - Physical Exam Vitals and I&O: Vital Signs Temp 98 F 05/10/19 13:08 Pulse 99 05/10/19 13:08 Resp 20 05/10/19 13:08 BP 104/55 05/10/19 13:08 Pulse Ox 91 05/10/19 13:08 Intake & Output 05/09/19 05/10/19 05/10/19 18:59 06:59 18:59 Intake Total 240 800 Balance 240 800 Intake: Oral 240 800 Other: # Voids 3 2 # Bowel Movements 1 1 Stool Characteristics Soft Soft Active Medications: Current Medications Acetaminophen (Tylenol) 650 mg PO Q4HR PRN PRN Reason: Temperature Above 100 Stop: 06/25/19 15:19 Last Admin: 05/04/19 16:59 Dose: 650 mg Albuterol Sulfate (Albuterol 2.5mg/3ml Neb Ud) 2.5 mg HHN QIDRT [facility] Stop: 06/25/19 18:59 Last Admin: 05/10/19 15:15 Dose: Not Given Alprazolam (Xanax) 0.25 mg PO Q6HR PRN; Protocol PRN Reason: Anxiety Stop: 06/25/19 16:56 Last Admin: 05/05/19 04:29 Dose: 0.25 mg Budesonide (Pulmicort) 0.5 mg HHN BIDRT [facility] Stop: 06/26/19 18:59 Last Admin: 05/10/19 06:26 Dose: 0.5 mg [place] Oil/[place] Balsam/Trypsin (Venelex) 1 appl TP DAILY [facility] Stop: 06/29/19 08:59 Last Admin: 05/10/19 08:55 Dose: 1 appl Divalproex Sodium (Depakote Dr) 250 mg PO BID [facility]; Protocol Stop: 06/25/19 16:59 Last Admin: 05/10/19 08:54 Dose: 250 mg Docusate Sodium (Colace) 100 mg PO BID PRN PRN Reason: Constipation Stop: 06/25/19 17:55 Escitalopram Oxalate (Lexapro) 10 mg PO DAILY [facility]; Protocol Stop: 07/07/19 08:59 Last Admin: 05/10/19 08:54 Dose: 10 mg Furosemide (Lasix) 40 mg PO Q24HR PRN PRN Reason: EDEMA Stop: 06/25/19 18:44 Gabapentin (Neurontin) 300 mg PO BID [facility] Stop: 06/26/19 08:59 Last Admin: 05/10/19 08:54 Dose: 300 mg Ibuprofen (Motrin) 800 mg PO Q8HR PRN PRN Reason: Pain (Mild 1-3) Stop: 06/25/19 17:55 Last Admin: 05/07/19 21:10 Dose: 800 mg Neomycin/Polymyxin/Bacitracin (Triple Antibiotic Pkt) 1 pkt TP DAILY [facility] Stop: 06/27/19 08:59 Last Admin: 05/10/19 08:55 Dose: 1 pkt Prednisone (Deltasone) 10 mg PO DAILY [facility] Stop: 06/26/19 08:59 Last Admin: 05/10/19 08:54 Dose: 10 mg Promethazine HCl (Phenergan) 6.25 mg PO Q6HR PRN PRN Reason: Cough Stop: 06/25/19 17:55 Last Admin: 05/09/19 08:23 Dose: 6.25 mg Ropinirole HCl (Requip) 0.25 mg PO TID [facility] Stop: 06/25/19 20:59 Last Admin: 05/10/19 13:46 Dose: Not Given Zolpidem Tartrate (Ambien) 5 mg PO HSMR1 PRN PRN Reason: Insomnia Stop: 06/25/19 15:19 Last Admin: 05/09/19 02:43 Dose: 5 mg General: alert HEENT: NC/AT, PERRLA, EOMI Neck: Supple, No JVD Lungs: CTAB Cardiovascular: RRR, Normal S1, Normal S2, with murmur Abdomen: soft, thin, positive bowel sound Extremities: clear, contracture Neurological: no change Internal Medicine Assmt/Plan - Assessment Assessment: - Assessment Assessment: recurrent uti chronic renal insufficiency Lung CA with left upper chest port Hyperlipidemia PVD RA - Plan Plan: - - Plan Plan: resume on po abx continue home medications fall precautions respiratory tx as needed supplemental O2 will continue to follow patient cpm Nutritional Asmnt/Malnutr-PDOC - Dietary Evaluation Malnutrition Findings (Please click <Entered> for more info): Nutritional Asmnt/Malnutrition Start: 04/29/19 14: 16 Text: Status: Complete Freq: Protocol: Document 04/29/19 14:16 KENANYOKASTAALIYAH (Rec: 04/29/19 14:19 [email or web address] [email or web address]) Nutritional Asmnt/Malnutrition Patient General Information Nutritional Screening Moderate Risk Diagnosis Psychosis Pertinent Medical Hx/Surgical Hx Lung CA with LT Upper Chest Port, Hyperlipidemia, Alzheimers Disease, PVD, RA, COPD, Depression, AKF Subjective Information Pt is a 84-year-old female admitted on 04/26 d/t agitation and aggressive behavior. Pt is eating an estimated 60% of meals since admit date (x3 days) Per Meal/Nutrition Activity Record. Dietary is currently providing an estimated 1750 kcals and 100 gm Pro, per Pt PO intake this is providing an estimated 1050 kcals and 60gm Pro to meet 78 % kcal and 100% Pro needs. Will continue to monitor PO intake. Spoke with pt nurse Anahy concerning pt A1c order, nurse to follow-up. Anthropometrics HT: 53 WT: 120 LB (54.55 kg) BMI: 21.26 (normal) GI/ Skin Integrity GI: WNL, Soft BM: 04/27 x2 I/O: 1340/Not Noted Skin: Dryness, Redness, Bruises Hunter: 17 Diet Order: [facility] Estimated Energy Needs: ( Geriatric, CBW) 4214-4931 kcals (25-30 kcals/ kg) 55-65g Pro (1.0-1.2 g/kg) 8608-0108 ml (25-30 ml/kg) Current Diet Order/ Nutrition Support [facility] Pertinent Medications Albuterol (PRN), Pulmicort, Colace, Lasix, Klor-con, Deltasone Pertinent Labs 04/25: Glucose 162, BUN/Cr 27/0 .81, Ca 7.6, T Protein 5.3, Albumin 2.6, Hgb/Hct 9.7/30.2 Nutritional Hx/Data Height 1.6 m Height (Calculated Centimeters) 160.0 Current Weight (lbs) 54.431 kg Weight (Calculated Kilograms) 54.4 Weight (Calculated Grams) 21516.1 [place] Body Weight 115 LB (52.27 kg) % [place] Body Weight 104 Body Mass Index (BMI) 21.2 Weight Status Overweight GI Symptoms Last BM 04/27 x2 Skin Integrity/Comment: Skin: Dryness, Redness, Bruises Hunter: 17 Current %PO Fair (50-74%) Estimated Nutritional Goals BEE in Kcals: Using Current wt Calories/Kcals/Kg 25-30 Kcals Calculated 6578-4647 Protein: Using Current wt Protein g/k.0-1.2 Protein Calculated 55-65 Fluid: ml 3239-2499 ml (25-30 ml/kg Nutritional Problem 1. Problem Problem Impaired nutrient utilization Etiology r/t endocrine dysfunction Signs/Symptoms: aeb labs (04/25) Glucose 162. Malnutrition Related to Morbid Obesity Malnutrition related to morbid obesity No Intervention/Recommendation Comments Continue CCHO diet as tolerated. Expected Outcomes/Goals Expected Outcomes/Goals 1.PO intake to continue to meet >75% of estimated nutritional needs. 2.Monitor PO intake, wt, nutrition related lab to trend WNL, and skin integrity to trend WNL. 3.F/U as low risk in 7-10 days , 05/05-05/08.
[2019-05-11] MEDS: Albuterol Nebulizer 2.5mg/3mL HHN SCH ×4 (06:43→18:11)
[2019-05-11] MEDS: Budesonide 0.5 Mg/2 mL Ud HHN SCH ×2 (06:43→18:11)
[2019-05-11] MEDS: Venelex 60gm Tube TP SCH (08:37)
[2019-05-11] MEDS: Potassium Chloride 10 mEq ER Tab PO SCH (08:38)
[2019-05-11] MEDS: Triple Antibiotic 0.94 gm Pkt TP SCH (08:39)
--- NOTE | 2019-05-11 13:13 | Internal Medicine Prog Note ---
Internal Medicine Subjective - Subjective Patient seen and examined:: with staff (constipated), chart reviewed, other (on o2) Patient is:: awake, verbal, interactive, in wheelchair Patient Complaints of:: cough Per staff patient has:: no adverse event, no episodes of fall, poor appetite Internal Medicine Objective - Results Recent Labs: Laboratory Last Values POC Glucose 93 MG/DL (70 - 105) 05/07/19 21:31 - Physical Exam Vitals and I&O: Vital Signs Temp 97.1 F 05/11/19 06:12 Pulse 82 05/11/19 06:12 Resp 18 05/11/19 06:12 BP 125/50 05/11/19 06:12 Pulse Ox 92 05/11/19 06:12 Intake & Output 05/10/19 05/11/19 05/11/19 17:59 06:59 18:59 Intake Total Balance Intake: Oral Other: # Voids # Bowel Movements Active Medications: Current Medications Acetaminophen (Tylenol) 650 mg PO Q4HR PRN PRN Reason: Temperature Above 100 Stop: 06/25/19 15:19 Last Admin: 05/11/19 06:46 Dose: 650 mg Albuterol Sulfate (Albuterol 2.5mg/3ml Neb Ud) 2.5 mg HHN QIDRT [facility] Stop: 06/25/19 18:59 Last Admin: 05/11/19 06:43 Dose: Not Given Alprazolam (Xanax) 0.25 mg PO Q6HR PRN; Protocol PRN Reason: Anxiety Stop: 06/25/19 16:56 Last Admin: 05/05/19 04:29 Dose: 0.25 mg Budesonide (Pulmicort) 0.5 mg HHN BIDRT [facility] Stop: 06/26/19 18:59 Last Admin: 05/11/19 06:43 Dose: Not Given [place] Oil/[place] Balsam/Trypsin (Venelex) 1 appl TP DAILY [facility] Stop: 06/29/19 08:59 Last Admin: 05/11/19 08:37 Dose: 1 appl Ciprofloxacin (Cipro) 500 mg PO BID [facility] Stop: 07/10/19 08:59 Last Admin: 05/11/19 08:38 Dose: 500 mg Divalproex Sodium (Depakote Dr) 250 mg PO BID [facility]; Protocol Stop: 06/25/19 16:59 Last Admin: 05/11/19 08:39 Dose: 250 mg Docusate Sodium (Colace) 100 mg PO BID PRN PRN Reason: Constipation Stop: 06/25/19 17:55 Escitalopram Oxalate (Lexapro) 10 mg PO DAILY [facility]; Protocol Stop: 07/07/19 08:59 Last Admin: 05/11/19 08:39 Dose: 10 mg Furosemide (Lasix) 40 mg PO Q24HR PRN PRN Reason: EDEMA Stop: 06/25/19 18:44 Gabapentin (Neurontin) 300 mg PO BID [facility] Stop: 06/26/19 08:59 Last Admin: 05/11/19 08:39 Dose: 300 mg Ibuprofen (Motrin) 800 mg PO Q8HR PRN PRN Reason: Pain (Mild 1-3) Stop: 06/25/19 17:55 Last Admin: 05/10/19 18:04 Dose: 800 mg Neomycin/Polymyxin/Bacitracin (Triple Antibiotic Pkt) 1 pkt TP DAILY [facility] Stop: 06/27/19 08:59 Last Admin: 05/11/19 08:39 Dose: 1 pkt Potassium Chloride (Klor-Con) 10 meq PO DAILY [facility] Stop: 07/10/19 08:59 Last Admin: 05/11/19 08:38 Dose: 10 meq Prednisone (Deltasone) 10 mg PO DAILY [facility] Stop: 06/26/19 08:59 Last Admin: 05/11/19 08:37 Dose: 10 mg Promethazine HCl (Phenergan) 6.25 mg PO Q6HR PRN PRN Reason: Cough Stop: 06/25/19 17:55 Last Admin: 05/09/19 08:23 Dose: 6.25 mg Ropinirole HCl (Requip) 0.25 mg PO TID [facility] Stop: 06/25/19 20:59 Last Admin: 05/11/19 08:38 Dose: 0.25 mg Zolpidem Tartrate (Ambien) 5 mg PO HSMR1 PRN PRN Reason: Insomnia Stop: 06/25/19 15:19 Last Admin: 05/09/19 02:43 Dose: 5 mg General: alert HEENT: NC/AT, PERRLA, EOMI Neck: Supple, No JVD Lungs: CTAB Cardiovascular: RRR, Normal S1, Normal S2, with murmur Abdomen: soft, thin, positive bowel sound Extremities: clear, contracture Neurological: no change Internal Medicine Assmt/Plan - Assessment Assessment: - Assessment Assessment: recurrent uti chronic renal insufficiency Lung CA with left upper chest port Hyperlipidemia PVD RA constipation - Plan Plan: - - Plan Plan: resume on po abx continue home medications fall precautions respiratory tx as needed supplemental O2 will continue to follow patient cpm may need i and o cath laxative added dw dr haney and rn Nutritional Asmnt/Malnutr-PDOC - Dietary Evaluation Malnutrition Findings (Please click <Entered> for more info): Nutritional Asmnt/Malnutrition Start: 04/29/19 14: 16 Text: Status: Complete Freq: Protocol: Document 04/29/19 14:16 CARMEN (Rec: 04/29/19 14:19 CARMEN [email or web address]) Nutritional Asmnt/Malnutrition Patient General Information Nutritional Screening Moderate Risk Diagnosis Psychosis Pertinent Medical Hx/Surgical Hx Lung CA with LT Upper Chest Port, Hyperlipidemia, Alzheimers Disease, PVD, RA, COPD, Depression, AKF Subjective Information Pt is a 84-year-old female admitted on 04/26 d/t agitation and aggressive behavior. Pt is eating an estimated 60% of meals since admit date (x3 days) Per Meal/Nutrition Activity Record. Dietary is currently providing an estimated 1750 kcals and 100 gm Pro, per Pt PO intake this is providing an estimated 1050 kcals and 60gm Pro to meet 78 % kcal and 100% Pro needs. Will continue to monitor PO intake. Spoke with pt nurse Anahy concerning pt A1c order, nurse to follow-up. Anthropometrics HT: 53 WT: 120 LB (54.55 kg) BMI: 21.26 (normal) GI/ Skin Integrity GI: WNL, Soft BM: 04/27 x2 I/O: 1340/Not Noted Skin: Dryness, Redness, Bruises Hunter: 17 Diet Order: [facility] Estimated Energy Needs: ( Geriatric, CBW) 2980-5374 kcals (25-30 kcals/ kg) 55-65g Pro (1.0-1.2 g/kg) 3905-8712 ml (25-30 ml/kg) Current Diet Order/ Nutrition Support [facility] Pertinent Medications Albuterol (PRN), Pulmicort, Colace, Lasix, Klor-con, Deltasone Pertinent Labs 04/25: Glucose 162, BUN/Cr 27/0 .81, Ca 7.6, T Protein 5.3, Albumin 2.6, Hgb/Hct 9.7/30.2 Nutritional Hx/Data Height 1.6 m Height (Calculated Centimeters) 160.0 Current Weight (lbs) 54.431 kg Weight (Calculated Kilograms) 54.4 Weight (Calculated Grams) 03795.1 [place] Body Weight 115 LB (52.27 kg) % [place] Body Weight 104 Body Mass Index (BMI) 21.2 Weight Status Overweight GI Symptoms Last BM 04/27 x2 Skin Integrity/Comment: Skin: Dryness, Redness, Bruises Hunter: 17 Current %PO Fair (50-74%) Estimated Nutritional Goals BEE in Kcals: Using Current wt Calories/Kcals/Kg 25-30 Kcals Calculated 0484-1771 Protein: Using Current wt Protein g/k.0-1.2 Protein Calculated 55-65 Fluid: ml 8469-0269 ml (25-30 ml/kg Nutritional Problem 1. Problem Problem Impaired nutrient utilization Etiology r/t endocrine dysfunction Signs/Symptoms: aeb labs (04/25) Glucose 162. Malnutrition Related to Morbid Obesity Malnutrition related to morbid obesity No Intervention/Recommendation Comments Continue CCHO diet as tolerated. Expected Outcomes/Goals Expected Outcomes/Goals 1.PO intake to continue to meet >75% of estimated nutritional needs. 2.Monitor PO intake, wt, nutrition related lab to trend WNL, and skin integrity to trend WNL. 3.F/U as low risk in 7-10 days , 05/05-05/08.
[2019-05-11] MEDS ORDERED: Magnesium Hydroxide (MOM) 30 mL UDC PO PRN (13:42)
--- NOTE | 2019-05-12 01:10 | Progress Notes ---
DATE: 05/11/2019 PSYCHIATRIC PROGRESS NOTE SUBJECTIVE: Staff was spoken to. The patient is interviewed. Mood is noted to be depressed. Affect is constricted. The patient is stating that she has been feeling very tired and could not figure it out what she could do. The patient has been sent out yesterday because of the urinary tract infection and the patient has been returned after medical stabilization. The patient at this time is isolative and withdrawn and is not presenting with any threats to harm self or others, but is stating that she is frustrated for being here and she wants to go to her place in [place]. ASSESSMENT: The patient is still depressed. PLAN: To continue the patient with the supportive therapy and await for placement. [facility]# [id number]
[2019-05-12] MEDS: Albuterol Nebulizer 2.5mg/3mL HHN SCH ×4 (06:37→19:03)
[2019-05-12] MEDS: Budesonide 0.5 Mg/2 mL Ud HHN SCH ×2 (06:37→19:03)
[2019-05-12] MEDS: Triple Antibiotic 0.94 gm Pkt TP SCH (08:30)
[2019-05-12] MEDS: Venelex 60gm Tube TP SCH (08:30)
[2019-05-12] MEDS: Potassium Chloride 10 mEq ER Tab PO SCH (08:31)
--- NOTE | 2019-05-12 12:52 | Internal Medicine Prog Note ---
Internal Medicine Subjective - Subjective Patient seen and examined:: with staff, chart reviewed Patient is:: awake, verbal, interactive, in wheelchair Patient Complaints of:: cough Per staff patient has:: no adverse event, no episodes of fall, poor appetite Internal Medicine Objective - Results Recent Labs: Laboratory Last Values POC Glucose 93 MG/DL (70 - 105) 05/07/19 21:31 - Physical Exam Vitals and I&O: Vital Signs Temp 97.9 F 05/12/19 06:38 Pulse 100 05/12/19 06:38 Resp 20 05/12/19 08:00 BP 123/71 05/12/19 06:38 Pulse Ox 92 05/12/19 06:38 Intake & Output 05/11/19 05/12/19 05/12/19 18:59 06:59 18:59 Intake Total 800 120 Balance 800 120 Intake: Oral 800 120 Other: # Voids 3 # Bowel Movements 0 Active Medications: Current Medications Acetaminophen (Tylenol) 650 mg PO Q4HR PRN PRN Reason: Temperature Above 100 Stop: 06/25/19 15:19 Last Admin: 05/11/19 06:46 Dose: 650 mg Albuterol Sulfate (Albuterol 2.5mg/3ml Neb Ud) 2.5 mg HHN QIDRT [facility] Stop: 06/25/19 18:59 Last Admin: 05/12/19 11:13 Dose: Not Given Alprazolam (Xanax) 0.25 mg PO Q6HR PRN; Protocol PRN Reason: Anxiety Stop: 06/25/19 16:56 Last Admin: 05/05/19 04:29 Dose: 0.25 mg Budesonide (Pulmicort) 0.5 mg HHN BIDRT [facility] Stop: 06/26/19 18:59 Last Admin: 05/12/19 06:37 Dose: Not Given [place] Oil/[place] Balsam/Trypsin (Venelex) 1 appl TP DAILY [facility] Stop: 06/29/19 08:59 Last Admin: 05/12/19 08:30 Dose: 1 appl Ciprofloxacin (Cipro) 500 mg PO BID [facility] Stop: 07/10/19 08:59 Last Admin: 05/12/19 08:30 Dose: 500 mg Docusate Sodium (Colace) 100 mg PO BID PRN PRN Reason: Constipation Stop: 06/25/19 17:55 Furosemide (Lasix) 40 mg PO Q24HR PRN PRN Reason: EDEMA Stop: 06/25/19 18:44 Gabapentin (Neurontin) 300 mg PO BID [facility] Stop: 06/26/19 08:59 Last Admin: 05/12/19 08:31 Dose: 300 mg Ibuprofen (Motrin) 800 mg PO Q8HR PRN PRN Reason: Pain (Mild 1-3) Stop: 06/25/19 17:55 Last Admin: 05/12/19 03:56 Dose: 800 mg Magnesium Hydroxide (Milk Of Magnesia) 30 ml PO HS PRN PRN Reason: Constipation Stop: 07/10/19 13:41 Neomycin/Polymyxin/Bacitracin (Triple Antibiotic Pkt) 1 pkt TP DAILY [facility] Stop: 06/27/19 08:59 Last Admin: 05/12/19 08:30 Dose: 1 pkt Potassium Chloride (Klor-Con) 10 meq PO DAILY [facility] Stop: 07/10/19 08:59 Last Admin: 05/12/19 08:31 Dose: 10 meq Prednisone (Deltasone) 10 mg PO DAILY [facility] Stop: 06/26/19 08:59 Last Admin: 05/12/19 08:30 Dose: 10 mg Promethazine HCl (Phenergan) 6.25 mg PO Q6HR PRN PRN Reason: Cough Stop: 06/25/19 17:55 Last Admin: 05/09/19 08:23 Dose: 6.25 mg Ropinirole HCl (Requip) 0.25 mg PO TID [facility] Stop: 06/25/19 20:59 Last Admin: 05/12/19 08:30 Dose: 0.25 mg Zolpidem Tartrate (Ambien) 5 mg PO HSMR1 PRN PRN Reason: Insomnia Stop: 06/25/19 15:19 Last Admin: 05/11/19 21:28 Dose: 5 mg General: alert HEENT: NC/AT, PERRLA, EOMI Neck: Supple, No JVD Lungs: CTAB Cardiovascular: RRR, Normal S1, Normal S2, with murmur Abdomen: soft, thin, positive bowel sound Extremities: clear, contracture Neurological: no change Internal Medicine Assmt/Plan - Assessment Assessment: - Assessment Assessment: recurrent uti chronic renal insufficiency Lung CA with left upper chest port Hyperlipidemia PVD RA constipation - Plan Plan: - - Plan Plan: resume on po abx continue home medications fall precautions respiratory tx as needed supplemental O2 will continue to follow patient cpm may need i and o cath laxative added dw dr haney and rn Nutritional Asmnt/Malnutr-PDOC - Dietary Evaluation Malnutrition Findings (Please click <Entered> for more info): Nutritional Asmnt/Malnutrition Start: 04/29/19 14: 16 Text: Status: Complete Freq: Protocol: Document 04/29/19 14:16 MAUREENALIYAH (Rec: 04/29/19 14:19 MAUREENALIYAH [id number]) Nutritional Asmnt/Malnutrition Patient General Information Nutritional Screening Moderate Risk Diagnosis Psychosis Pertinent Medical Hx/Surgical Hx Lung CA with LT Upper Chest Port, Hyperlipidemia, Alzheimers Disease, PVD, RA, COPD, Depression, AKF Subjective Information Pt is a 84-year-old female admitted on 04/26 d/t agitation and aggressive behavior. Pt is eating an estimated 60% of meals since admit date (x3 days) Per Meal/Nutrition Activity Record. Dietary is currently providing an estimated 1750 kcals and 100 gm Pro, per Pt PO intake this is providing an estimated 1050 kcals and 60gm Pro to meet 78 % kcal and 100% Pro needs. Will continue to monitor PO intake. Spoke with pt nurse Anahy concerning pt A1c order, nurse to follow-up. Anthropometrics HT: 53 WT: 120 LB (54.55 kg) BMI: 21.26 (normal) GI/ Skin Integrity GI: WNL, Soft BM: 04/27 x2 I/O: 1340/Not Noted Skin: Dryness, Redness, Bruises Hunter: 17 Diet Order: [facility] Estimated Energy Needs: ( Geriatric, CBW) 4772-9292 kcals (25-30 kcals/ kg) 55-65g Pro (1.0-1.2 g/kg) 3028-9852 ml (25-30 ml/kg) Current Diet Order/ Nutrition Support [facility] Pertinent Medications Albuterol (PRN), Pulmicort, Colace, Lasix, Klor-con, Deltasone Pertinent Labs 04/25: Glucose 162, BUN/Cr 27/0 .81, Ca 7.6, T Protein 5.3, Albumin 2.6, Hgb/Hct 9.7/30.2 Nutritional Hx/Data Height 1.6 m Height (Calculated Centimeters) 160.0 Current Weight (lbs) 54.431 kg Weight (Calculated Kilograms) 54.4 Weight (Calculated Grams) 88114.1 [place] Body Weight 115 LB (52.27 kg) % [place] Body Weight 104 Body Mass Index (BMI) 21.2 Weight Status Overweight GI Symptoms Last BM 04/27 x2 Skin Integrity/Comment: Skin: Dryness, Redness, Bruises Hunter: 17 Current %PO Fair (50-74%) Estimated Nutritional Goals BEE in Kcals: Using Current wt Calories/Kcals/Kg 25-30 Kcals Calculated 6721-2602 Protein: Using Current wt Protein g/k.0-1.2 Protein Calculated 55-65 Fluid: ml 9374-9740 ml (25-30 ml/kg Nutritional Problem 1. Problem Problem Impaired nutrient utilization Etiology r/t endocrine dysfunction Signs/Symptoms: aeb labs (04/25) Glucose 162. Malnutrition Related to Morbid Obesity Malnutrition related to morbid obesity No Intervention/Recommendation Comments Continue CCHO diet as tolerated. Expected Outcomes/Goals Expected Outcomes/Goals 1.PO intake to continue to meet >75% of estimated nutritional needs. 2.Monitor PO intake, wt, nutrition related lab to trend WNL, and skin integrity to trend WNL. 3.F/U as low risk in 7-10 days , 05/05-05/08.
--- NOTE | 2019-05-13 02:01 | Progress Notes ---
DATE: 05/12/2019 PSYCHIATRIC PROGRESS NOTE SUBJECTIVE: Staff was spoken to. The patient is interviewed. Mood is noted to be dysphoric. Coping skills are noted to be poor. Insight and judgment are also noted to be limited. ____ A home health care social worker services have been trying to arrange the placement of this patient, but they have not been able to get the required documents to show that the patient is not on hospice. We are waiting for the previous facility to send the documents so that the patient is going to be discharged to the [facility]. The patient at this time is noted to be very tired and is relaxing in the bed. No major behavioral problems are noted. Since the patient has been having difficult time, I have decided to hold the psychotropic medications. JOB# [id number]
[2019-05-13] MEDS: Albuterol Nebulizer 2.5mg/3mL HHN SCH ×3 (06:22→15:20)
[2019-05-13] MEDS: Budesonide 0.5 Mg/2 mL Ud HHN SCH (06:22)
[2019-05-13] MEDS: Triple Antibiotic 0.94 gm Pkt TP SCH (08:46)
[2019-05-13] MEDS: Venelex 60gm Tube TP SCH (08:46)
[2019-05-13] MEDS: Potassium Chloride 10 mEq ER Tab PO SCH (08:47)
--- NOTE | 2019-05-13 10:29 | Diagnostic Imaging Report ---
Left hip 2 views Indication: Fall Comparison: none Findings: Postsurgical changes of the lower lumbar spine are partially visualized. Mild degenerative changes of bilateral hip joints are noted. No evidence of an acute fracture or dislocation. No significant focal soft tissue swelling. Impression: No evidence of an acute or dislocation. Postsurgical changes of the lower lumbar spine. In the setting of trauma, if clinical symptoms persist and there is continued concern for an occult fracture, follow up exams in 5-7 days is suggested.
--- NOTE | 2019-05-13 13:06 | Internal Medicine Prog Note ---
Internal Medicine Subjective - Subjective Patient seen and examined:: with staff, chart reviewed Patient is:: awake, verbal, interactive, in wheelchair Patient Complaints of:: cough Per staff patient has:: no adverse event, no episodes of fall, poor appetite Internal Medicine Objective - Results Recent Labs: Laboratory Last Values POC Glucose 93 MG/DL (70 - 105) 05/07/19 21:31 - Physical Exam Vitals and I&O: Vital Signs Temp 98.6 F 05/13/19 06:16 Pulse 106 05/13/19 06:16 Resp 18 05/13/19 07:45 BP 104/58 05/13/19 06:16 Pulse Ox 92 05/13/19 06:16 Intake & Output 05/12/19 05/13/19 05/13/19 18:59 06:59 18:59 Intake Total 1200 360 Balance 1200 360 Intake: Oral 1200 360 Other: # Voids 3 2 # Bowel Movements 0 2 Active Medications: Current Medications Acetaminophen (Tylenol) 650 mg PO Q4HR PRN PRN Reason: Temperature Above 100 Stop: 06/25/19 15:19 Last Admin: 05/11/19 06:46 Dose: 650 mg Albuterol Sulfate (Albuterol 2.5mg/3ml Neb Ud) 2.5 mg HHN QIDRT [facility] Stop: 06/25/19 18:59 Last Admin: 05/13/19 13:00 Dose: Not Given Alprazolam (Xanax) 0.25 mg PO Q6HR PRN; Protocol PRN Reason: Anxiety Stop: 06/25/19 16:56 Last Admin: 05/05/19 04:29 Dose: 0.25 mg Budesonide (Pulmicort) 0.5 mg HHN BIDRT [facility] Stop: 06/26/19 18:59 Last Admin: 05/13/19 06:22 Dose: 0.5 mg [place] Oil/[place] Balsam/Trypsin (Venelex) 1 appl TP DAILY [facility] Stop: 06/29/19 08:59 Last Admin: 05/13/19 08:46 Dose: 1 appl Ciprofloxacin (Cipro) 500 mg PO BID [facility] Stop: 07/10/19 08:59 Last Admin: 05/13/19 08:47 Dose: 500 mg Docusate Sodium (Colace) 100 mg PO BID PRN PRN Reason: Constipation Stop: 06/25/19 17:55 Furosemide (Lasix) 40 mg PO Q24HR PRN PRN Reason: EDEMA Stop: 06/25/19 18:44 Gabapentin (Neurontin) 300 mg PO BID [facility] Stop: 06/26/19 08:59 Last Admin: 05/13/19 08:47 Dose: 300 mg Ibuprofen (Motrin) 800 mg PO Q8HR PRN PRN Reason: Pain (Mild 1-3) Stop: 06/25/19 17:55 Last Admin: 05/13/19 04:30 Dose: 800 mg Magnesium Hydroxide (Milk Of Magnesia) 30 ml PO HS PRN PRN Reason: Constipation Stop: 07/10/19 13:41 Neomycin/Polymyxin/Bacitracin (Triple Antibiotic Pkt) 1 pkt TP DAILY [facility] Stop: 06/27/19 08:59 Last Admin: 05/13/19 08:46 Dose: 1 pkt Potassium Chloride (Klor-Con) 10 meq PO DAILY [facility] Stop: 07/10/19 08:59 Last Admin: 05/13/19 08:47 Dose: 10 meq Prednisone (Deltasone) 10 mg PO DAILY [facility] Stop: 06/26/19 08:59 Last Admin: 05/13/19 08:47 Dose: 10 mg Promethazine HCl (Phenergan) 6.25 mg PO Q6HR PRN PRN Reason: Cough Stop: 06/25/19 17:55 Last Admin: 05/09/19 08:23 Dose: 6.25 mg Ropinirole HCl (Requip) 0.25 mg PO TID [facility] Stop: 06/25/19 20:59 Last Admin: 05/13/19 08:47 Dose: 0.25 mg Zolpidem Tartrate (Ambien) 5 mg PO HSMR1 PRN PRN Reason: Insomnia Stop: 06/25/19 15:19 Last Admin: 05/13/19 01:48 Dose: 5 mg General: alert HEENT: NC/AT, PERRLA, EOMI Neck: Supple, No JVD Lungs: CTAB Cardiovascular: RRR, Normal S1, Normal S2, with murmur Abdomen: soft, thin, positive bowel sound Extremities: clear, contracture Neurological: no change Internal Medicine Assmt/Plan - Assessment Assessment: - Assessment Assessment: recurrent uti chronic renal insufficiency Lung CA with left upper chest port Hyperlipidemia PVD RA constipation - Plan Plan: - - Plan Plan: resume on po abx continue home medications fall precautions respiratory tx as needed supplemental O2 will continue to follow patient cpm may need i and o cath laxative added dw dr haney and rn Nutritional Asmnt/Malnutr-PDOC - Dietary Evaluation Malnutrition Findings (Please click <Entered> for more info): Nutritional Asmnt/Malnutrition Start: 04/29/19 14: 16 Text: Status: Complete Freq: Protocol: Document 04/29/19 14:16 MAUREENALIYAH (Rec: 04/29/19 14:19 MAUREENALIYAH [id number]) Nutritional Asmnt/Malnutrition Patient General Information Nutritional Screening Moderate Risk Diagnosis Psychosis Pertinent Medical Hx/Surgical Hx Lung CA with LT Upper Chest Port, Hyperlipidemia, Alzheimers Disease, PVD, RA, COPD, Depression, AKF Subjective Information Pt is a 84-year-old female admitted on 04/26 d/t agitation and aggressive behavior. Pt is eating an estimated 60% of meals since admit date (x3 days) Per Meal/Nutrition Activity Record. Dietary is currently providing an estimated 1750 kcals and 100 gm Pro, per Pt PO intake this is providing an estimated 1050 kcals and 60gm Pro to meet 78 % kcal and 100% Pro needs. Will continue to monitor PO intake. Spoke with pt nurse Anahy concerning pt A1c order, nurse to follow-up. Anthropometrics HT: 53 WT: 120 LB (54.55 kg) BMI: 21.26 (normal) GI/ Skin Integrity GI: WNL, Soft BM: 04/27 x2 I/O: 1340/Not Noted Skin: Dryness, Redness, Bruises Hunter: 17 Diet Order: [facility] [place] Estimated Energy Needs: ( Geriatric, CBW) 9264-1510 kcals (25-30 kcals/ kg) 55-65g Pro (1.0-1.2 g/kg) 9842-4236 ml (25-30 ml/kg) Current Diet Order/ Nutrition Support [facility] [place] Pertinent Medications Albuterol (PRN), Pulmicort, Colace, Lasix, Klor-con, Deltasone Pertinent Labs 04/25: Glucose 162, BUN/Cr 27/0 .81, Ca 7.6, T Protein 5.3, Albumin 2.6, Hgb/Hct 9.7/30.2 Nutritional Hx/Data Height 1.6 m Height (Calculated Centimeters) 160.0 Current Weight (lbs) 54.431 kg Weight (Calculated Kilograms) 54.4 Weight (Calculated Grams) 15073.1 [place] Body Weight 115 LB (52.27 kg) % [place] Body Weight 104 Body Mass Index (BMI) 21.2 Weight Status Overweight GI Symptoms Last BM 04/27 x2 Skin Integrity/Comment: Skin: Dryness, Redness, Bruises Hunter: 17 Current %PO Fair (50-74%) Estimated Nutritional Goals BEE in Kcals: Using Current wt Calories/Kcals/Kg 25-30 Kcals Calculated 3357-1901 Protein: Using Current wt Protein g/k.0-1.2 Protein Calculated 55-65 Fluid: ml 0421-0685 ml (25-30 ml/kg Nutritional Problem 1. Problem Problem Impaired nutrient utilization Etiology r/t endocrine dysfunction Signs/Symptoms: aeb labs (04/25) Glucose 162. Malnutrition Related to Morbid Obesity Malnutrition related to morbid obesity No Intervention/Recommendation Comments Continue CCHO diet as tolerated. Expected Outcomes/Goals Expected Outcomes/Goals 1.PO intake to continue to meet >75% of estimated nutritional needs. 2.Monitor PO intake, wt, nutrition related lab to trend WNL, and skin integrity to trend WNL. 3.F/U as low risk in 7-10 days , 05/05-05/08.
--- NOTE | 2019-05-13 14:23 | Progress Notes ---
DATE: 05/12/2019 PSYCHOLOGY PROGRESS NOTE SUBJECTIVE: The patient is seen and is interviewed. Case is discussed with staff. Mood appears to be more depressed this visit. The patient is withdrawn. The patient's affect is sullen and mood congruent. The patient states that she is fatigued and feels very tired this visit. The patient states that she feels helpless and hopeless and is not able to figure out what she can do to change her situation. The patient continues to be withdrawn. Staff reports the patient continues to state that she is frustrated with being in the hospital and wants to go to her own home in [place]. OBJECTIVE: Mood is quite depressed. Affect is sullen and mood congruent. Thought process shows to be depressogenic. The patient denied any hallucinations or delusions. The patient has been withdrawn and isolative. The patient is endorsing feelings of hopelessness and helplessness as well as futility and increased frustration. Staff reports the patient has been compliant with her medication. ASSESSMENT: The patient's depression persists. Patient is still awaiting placement. PLAN: We provided supportive psychotherapy, which included reality integration. We provided coping strategies for phase of life issues. We provided insight oriented as well as reflective listening therapeutic strategies to reduce the patient's depression. We encouraged the patient to continue to verbalize her concerns. The patient denied any suicidal ideation, plan or intention. The patient did give an indication of a passive wish to along with hopelessness and helplessness and purposelessness. The patient has become increasingly frustrated with her length of stay here in the hospital. We will continue to provide the present treatment if the patient remains on the unit. We will follow up in 2-3 days to continue. JOB# [id number] RACHEL
--- NOTE | 2019-05-13 19:28 | Discharge Summary ---
DATE OF DISCHARGE: 05/13/2019 IDENTIFYING DATA: The patient is an 84-year-old woman, resident of [facility]. JUSTIFICATION OF HOSPITALIZATION: The patient is admitted for acute mood swings and depression. CHIEF COMPLAINT: "I can't be here and I need to be out of my own place." DIAGNOSES AT THE TIME OF ADMISSION: AXIS I: Major depressive disorder, recurrent and moderate. AXIS IB: Dementia and behavioral change secondary to dementia. AXIS II: None. AXIS III: As per Dr. Ch. HOSPITAL COURSE AND RESPONSE TO TREATMENT: Please refer to the 04/26/2019 dictation done by me. The patient has been closely monitored. Initially has been placed on valproic acid and low dose of the Lexapro for her depression, but the patient developed urinary tract infection and became very lethargic and could not be able to tolerate the medication and hence these two medications have been discontinued. The patient has been maintained only on lorazepam on a p.r.n. basis. The patient started to do fairly well. The patient's impulse control has improved and the patient was discharged on 05/13/2019, because other places have not been willing to accept the patient. MENTAL STATUS EXAMINATION: At the time of discharge noted to be stable. The patient is not presenting with any threats to harm self or others and no psychotic symptoms are noted. The patient is going to be requested to be followed up by Dr. Gonzales on an outpatient basis. PROGNOSIS: At the time of discharge noted to be fair with the treatment. JOB# [id number]
== END 2019-05-13 17:20 | DRG 885 ==
LOC: GERO 04-26 09:15
PROVIDERS: ADMIT Psychiatry & Neurology Psychiatry; ATTEND Psychiatry & Neurology Psychiatry
DX: F33.1 Major depressive disorder, recurrent, moderate (principal); N17.9 Acute kidney failure, unspecified; C34.90 Malignant neoplasm of unspecified part of unspecified bronchus or lung; N39.0 Urinary tract infection, site not specified; F02.81 Dementia in other diseases classified elsewhere, unspecified severity, with behavioral disturbance; M06.9 Rheumatoid arthritis, unspecified; I73.9 Peripheral vascular disease, unspecified; E78.5 Hyperlipidemia, unspecified; J44.9 Chronic obstructive pulmonary disease, unspecified; F41.9 Anxiety disorder, unspecified; G30.9 Alzheimer's disease, unspecified; Z79.51 Long term (current) use of inhaled steroids; Z79.899 Other long term (current) drug therapy
CPT/HCPCS: 73501; 82948-90; 83036-90; 90899; G0410; J7613; Z7610